=== PATIENT | male | born 1955 | race Caucasian/White ===

== ENCOUNTER 2017-02-05 05:40 | Emergency (ER) | payer BC ==
[~2017-02-05] VITALS: Ht 185.4 cm; Wt 90.2 kg
[~2017-02-05 05:40] MED LIST: OREGCAP
[2017-02-05 05:45] VITALS: TEMP 36.6; Ht 185.4 cm; Wt 90.2 kg
[2017-02-05] MEDS ORDERED: ASPIRIN 81 MG CHEW PO STA (06:02)
[2017-02-05 06:12] LABS: BASO % 0.5 %; BASO ABS # 0.04 K/uL (0-0.2); EOS ABS # 0.31 K/uL (0-0.5); HEMATOCRIT 45.6 % (42-52); HEMOGLOBIN 16.1 g/dL (14.0-18.0); IG# 0.02 K/uL (0.00-0.02); LYMPH % 21.8 %; LYMPH ABS # 1.68 K/uL (1.2-3.4); MEAN CELL VOLUME 92.3 fL (80-100); MEAN CORPUSCULAR HEMOGLOBIN 32.6 pg (25-34); MEAN CORPUSCULAR HGB CONC 35.3 g/dl (32-36); MEAN PLATELET VOLUME 10.1 fL (7.4-10.4); MONO % 7.4 %; MONO ABS # 0.57 K/uL (0.11-0.59); NEUT ABS # 5.09 K/uL (1.4-6.5); PLATELET COUNT 190 K/uL (130-400); RED CELL DISTRIBUTION WIDTH CV 12.1 % (11.5-14.5); WHITE BLOOD COUNT 7.71 K/uL (4.8-10.8)
[2017-02-05] MEDS ORDERED: NITROGLYCERIN 0.4 MG SL PER TAB CHARGE SL PRN (06:15)
[2017-02-05] MEDS ORDERED: MULT-190 PO (06:15)
[2017-02-05] MEDS ORDERED: HAWT1CAP PO (06:15)
[2017-02-05 06:29] LABS: ALBUMIN 3.7 gm/dl (3.4-5.0); ALT/SGPT 44 U/L (12-78); AST/SGOT 22 U/L (15-37); BLOOD UREA NITROGEN 17 mg/dl (7-18); CALCIUM 8.8 mg/dl (8.5-10.1); CARBON DIOXIDE 25 mmol/L (21-32); CREATININE 0.96 mg/dl (0.60-1.40); GLUCOSE 115 mg/dl (70-99); POTASSIUM 3.9 mmol/L (3.5-5.1); SODIUM 138 mmol/L (136-145)
[2017-02-05 06:34] LABS: ALKALINE PHOSPHATASE 87 U/L (45-117); CKMB 3.4 ng/ml (0.5-3.6); TOTAL PROTEIN 7.3 gm/dl (6.4-8.2)
--- NOTE | 2017-02-05 06:42 | DIAGNOSTIC IMAGING REPORT ---
CHEST ONE VIEW PORTABLE CLINICAL HISTORY: 61 years-old Male presenting with shoulder pain, right. TECHNIQUE: Portable upright AP view of the chest was obtained. COMPARISON: None. FINDINGS: Atherosclerosis of the aortic arch. Cardiac silhouette normal in size. Minimal basilar opacities. No pleural effusion or pneumothorax. Degenerative changes of the thoracic spine. Upper abdomen normal. IMPRESSION: 1. Minimal basilar atelectasis. Otherwise no acute cardiopulmonary disease. Electronically signed by: Sterling Wyatt M.D. 02/05/2017 6:41 AM Dictated Date/Time: 02/05/2017 6:40 AM
--- NOTE | 2017-02-05 07:12 | EMERGENCY ROOM VISIT NOTE ---
History Report prepared by Cris: Kem Brower Under the Supervision of: Dr. Argentina Sutton M.D. First contact with patient: 06:02 Chief Complaint: SHOULDER PAIN Stated Complaint: SHOULDER PAIN DOWN ARM IN TO NECK History of Present Illness The patient is a 61 year old male who presents to the Emergency Room with complaints of constant right shoulder pain beginning three hours ago. His pain radiates down his arm, and to his neck and left chest. He states that his pain is "subtle" and rates his discomfort as a 3/10 in severity. The patient also complains of diaphoresis. He took two 325 mg Aspirin tablets one hour ago. He denies any nausea or leg swelling. The patient had an angiogram in 2003, but has not had any cardiac intervention ever since. He notes that he drove to and from [place] yesterday. The patient has no history of blood clots. Source of History: patient Onset: Three hours ago Position: shoulder (left) Symptom Intensity: 3/10 Timing: constant Associated Symptoms: + diaphoresis, No nausea Note: The patient denies leg swelling. Review of Systems See HPI for pertinent positives & negatives. A total of 10 systems reviewed and were otherwise negative. Past Medical & Surgical Medical Problems: (1) HLD (hyperlipidemia) (2) HTN (hypertension) Family History No pertinent family history stated. Social History Smoking Status: Former Smoker Alcohol Use: occasionally Marital Status: Occupation Status: employed Current/Historical Medications Scheduled Jim Thorpe (Jim Thorpe), 150 MG PO DAILY Ocuvite Preservision (Ocuvite Preservision), 1 TAB PO BID Allergies Coded Allergies: Shrimp (Verified Allergy, Mild, SWELLING OF ORAL CAVITY, 02/05/17) Physical Exam Vital Signs Date Time Temp Pulse Resp B/P (MAP) Pulse Ox O2 Delivery O2 Flow Rate FiO2 02/05/17 07:59 55 18 144/74 93 02/05/17 06:40 55 144/82 02/05/17 05:59 54 02/05/17 05:45 36.6 64 18 161/99 93 Room Air Physical Exam Vital signs reviewed. General: Well-appearing male, in no significant distress. HEENT: No scleral icterus, PERRLA, neck supple. Atraumatic. Cardiovascular: Regular rate and rhythm, no extra sounds. Pulmonary: Clear to auscultation bilaterally, normal work of breathing. Abdomen: Soft, nontender, nondistended, positive bowel sounds. Musculoskeletal: Atraumatic, no peripheral edema. Left shoulder with full ROM and no discomfort. Neurologic: Patient awake alert and oriented x 3. Skin: Warm, dry, no rash Medical Decision & Procedures ER Provider Diagnostic Interpretation: Radiology results as stated below per my review and radiologist interpretation: CHEST ONE VIEW PORTABLE FINDINGS: Atherosclerosis of the aortic arch. Cardiac silhouette normal in size. Minimal basilar opacities. No pleural effusion or pneumothorax. Degenerative changes of the thoracic spine. Upper abdomen normal. IMPRESSION: 1. Minimal basilar atelectasis. Otherwise no acute cardiopulmonary disease. Electronically signed by: Sterling Wyatt M.D. 02/05/2017 6:41 AM Laboratory Results 02/05/17 05:55 Red Blood Count 4.94, Mean Corpuscular Volume 92.3, Mean Corpuscular Hemoglobin 32.6, Mean Corpuscular Hemoglobin Concent 35.3, Mean Platelet Volume 10.1, Neutrophils (%) (Auto) 66.0, Lymphocytes (%) (Auto) 21.8, Monocytes (%) (Auto) 7.4, Eosinophils (%) (Auto) 4.0, Basophils (%) (Auto) 0.5, Neutrophils # (Auto) 5.09, Lymphocytes # (Auto) 1.68, Monocytes # (Auto) 0.57, Eosinophils # (Auto) 0.31, Basophils # (Auto) 0.04 02/05/17 05:55 Test 02/05/17 05:55 02/05/17 07:37 White Blood Count 7.71 K/uL (4.8-10.8) Red Blood Count 4.94 M/uL (4.7-6.1) Hemoglobin 16.1 g/dL (14.0-18.0) Hematocrit 45.6 % (42-52) Mean Corpuscular Volume 92.3 fL (80-100) Mean Corpuscular Hemoglobin 32.6 pg (25-34) Mean Corpuscular Hemoglobin Concent 35.3 g/dl (32-36) Platelet Count 190 K/uL (130-400) Mean Platelet Volume 10.1 fL (7.4-10.4) Neutrophils (%) (Auto) 66.0 % Lymphocytes (%) (Auto) 21.8 % Monocytes (%) (Auto) 7.4 % Eosinophils (%) (Auto) 4.0 % Basophils (%) (Auto) 0.5 % Neutrophils # (Auto) 5.09 K/uL (1.4-6.5) Lymphocytes # (Auto) 1.68 K/uL (1.2-3.4) Monocytes # (Auto) 0.57 K/uL (0.11-0.59) Eosinophils # (Auto) 0.31 K/uL (0-0.5) Basophils # (Auto) 0.04 K/uL (0-0.2) RDW Standard Deviation 41.0 fL (36.4-46.3) RDW Coefficient of Variation 12.1 % (11.5-14.5) Immature Granulocyte % (Auto) 0.3 % Immature Granulocyte # (Auto) 0.02 K/uL (0.00-0.02) Anion Gap 7.0 mmol/L (3-11) Est Creatinine Clear Calc Drug Dose 90.1 ml/min Estimated GFR () 97.8 Estimated GFR (Non- 84.4 BUN/Creatinine Ratio 17.9 (10-20) Calcium Level 8.8 mg/dl (8.5-10.1) Total Bilirubin 0.3 mg/dl (0.2-1) Direct Bilirubin < 0.1 mg/dl (0-0.2) Aspartate Amino Transf (AST/SGOT) 22 U/L (15-37) Alanine Aminotransferase (ALT/SGPT) 44 U/L (12-78) Alkaline Phosphatase 87 U/L (45-117) Total Creatine Kinase 355 U/L (39-308) Creatine Kinase MB 3.4 ng/ml (0.5-3.6) Creatine Kinase MB Ratio 1.0 (0-3.0) Total Protein 7.3 gm/dl (6.4-8.2) Albumin 3.7 gm/dl (3.4-5.0) Bedside Troponin I < 0.030 ng/ml (0-0.045) Laboratory results per my review. ECG Indication: chest pain Rate (beats per minute): 55 Rhythm: sinus bradycardia Findings: no ectopy, other (Non-specific ST change in the inferior and lateral leads. ) Comparison ECG Date: April 23, 2008 Change: no significant change ED Course 0604: Past medical records reviewed. The patient was evaluated in room A9B. A complete history and physical examination was performed. 0602: Ordered Aspirin Chew 324 mg PO. 0615: Ordered Nitrostat Tab 0.4 mg SL. Medical Decision Differential diagnosis: Etiologies such as cardiac ischemia, aortic dissection, pulmonary embolism, pneumonia, pneumothorax, musculoskeletal, infections, pericarditis, myocarditis , esophageal rupture, gastrointestinal, as well as others were entertained. This pt was evaluated and appeared to be in no distress. EKG was obtained and although there are ST abnl, there is no change from previous. Pt took aspirin [employer]. Lab work reveals 2 sets of troponins are negative. CXR is clear. Pt's pain had completely resolved. Pt reports a normal stress test a few months ago. He was advised to f/u with his PCP this week for reevaluation and consideration of further cardiac testing. He will return to the ED for worsening of symptoms or any medical concerns. Medication Reconcilliation Current Medication List: was personally reviewed by me Blood Pressure Screening Patient's blood pressure: Elevated blood pressure Blood pressure disposition: Elevated BP felt to be situational Impression Primary Impression: Chest pain radiating to upper extremity Scribe Attestation The scribe's documentation has been prepared under my direction and personally reviewed by me in its entirety. I confirm that the note above accurately reflects all work, treatment, procedures, and medical decision making performed by me. Departure Information Dispostion Home / Self-Care Referrals Boom Lovell MD (PCP) Forms HOME CARE DOCUMENTATION FORM, IMPORTANT VISIT INFORMATION Patient Instructions My [facility] Additional Instructions Diagnosis: Chest pain with radiation to the upper extremity Aspirin 81 mg daily. Follow-up with your primary care physician this week for reevaluation. Return to the emergency department for worsening of symptoms or any medical concerns.
[2017-02-05 07:59] VITALS: BP 144/74; PULSE 55; O2SAT 93
== END 2017-02-05 08:01 | disposition home or self-care (01) ==
LOC: C.EDB 05:41 → C.EDA 08:01
DX: R07.89 Other chest pain (principal); I10 Essential (primary) hypertension; R94.31 Abnormal electrocardiogram [ECG] [EKG]; Z87.891 Personal history of nicotine dependence

== ENCOUNTER 2024-07-27 00:50 | Observation (INO) ==
[2024-07-27 01:16] LABS: iSTAT Creatinine 1.8 mg/dl (0.6-1.3); iSTAT Hemoglobin 10.5 g/dl (14.0-18.0); iSTAT Ionized Calcium 1.03 mmol/l (1.12-1.32); iSTAT Potassium 4.2 mmol/L (3.3-5.0)
[2024-07-27] MEDS: FAMOTIDINE 20MG IV PUSH 20 MG/5 ML SYR IV STA (01:16)
[2024-07-27] MEDS ORDERED: SODIUM CHLORIDE 0.9% 100 ML IV PRN (01:17)
[2024-07-27] MEDS: KCENTRA (500unit vial) 2000 units IVP IV SCH (01:25)
[2024-07-27 01:33] LABS: Bilirubin,Total 0.4 mg/dl (0.2-1.0); Calcium 8.3 mg/dl (8.6-10.3); Potassium 4.2 mmol/L (3.5-5.1)
[2024-07-27] MEDS: SODIUM CHLORIDE 0.9% 1,000 ML IV STA (01:33)
[2024-07-27 01:39] LABS: Albumin Globulin Ratio 1.4 (0.9-2); BUN Creatinine Ratio 38.7 (10-20); Creatinine Clr Calc Pharmacy 46.3 ml/min; Globulin 2.4 gm/dl (2.5-4.0); Hematocrit (blood only) 34.9 % (42.0-52.0); Hemoglobin 11.7 g/dl (14.0-18.0); Mean Corpuscular Hemoglobin 32.1 pg (25.0-34.0); Mean Corpuscular Hgb Conc 33.5 g/dL (32.0-36.0); Mean Corpuscular Volume 95.9 fL (80.0-100.0); Mean Platelet Volume 12.2 fL (9.4-12.4); Platelet Count 65 K/uL (130-400); RDW Standard Deviation 42.3 fL (36.4-46.3); Red Blood Count 3.64 M/uL (4.70-6.10); Total Protein 5.7 gm/dl (6.0-8.3); White Blood Count 4.38 K/ul (4.8-10.8)
[2024-07-27 01:40] LABS: Basophils # (auto) 0.01 K/uL (0.00-0.20); Basophils % (auto) 0.2 %; Echinocytes 1+; Immature Granulocytes # (auto) 0.01 K/uL (0.01-0.20); Immature Granulocytes % (auto) 0.2 %; Lymphocytes # (auto) 0.35 K/uL (1.20-3.40); Monocytes # (auto) 0.27 K/uL (0.11-0.59); Monocytes % (auto) 6.2 %; Neutrophils # (auto) 3.74 K/uL (1.40-6.50); Neutrophils % (auto) 85.4 %; Platelet Estimate Decreased (Normal)
--- NOTE | 2024-07-27 01:50 | Emergency Department Note ---
Impression & Plan Acute GI bleeding, Febrile illness, acute, Anticoagulated, Leukopenia, Thrombocytopenia ED Provider Note NAME: JELENA PATTON AGE: 69 SEX: Male INFORMANT: Patient and ED PROVIDER(S): Julius Frederick MD CHIEF COMPLAINT: GI bleeding PLAN: Disposition: Admitted Outpatient prescription management: none Referral: None MEDICAL DECISION MAKING: Patient presented because of GI bleeding. He was mildly hypotensive and tachycardic on examination. He was Hemoccult positive with dark stool from below. He had a benign abdominal examination. History did raise concerns for fever. Stool studies ordered. Blood cultures, lactate and procalcitonin ordered as well. Patient was given a gentle fluid bolus of 500 mL normal saline and 125 mL an hour. Hypotension did resolve. Patient had an i-STAT performed and his hemoglobin was noted to be 10.5. Record review indicates his last hemoglobin 6 months ago was over 15. Patient had a type and screen converted to type and cross for 4 units in case transfusion would be necessary. He noted his last dose of Eliquis was definitely morning but also possibly evening, several hours ago. Given this fact I did discuss his issues with the hospital pharmacist and Kcentra was ordered. Did discuss with patient the risk and benefits. Patient did have an elevated creatinine of 1.8 on i-STAT. CT imaging of abdomen pelvis was ordered without contrast. IV Pepcid and Protonix were also ordered. CT imaging of the abdomen pelvis revealed chronic findings but no evidence of acute pathology. Patient was reassessed and was doing better. No hypotension issues. Lactate was recollected and measured. It was elevated. The patient's blood pressure held stable. Considered more aggressive sepsis fluids however I did hold on large boluses secondary to the patient's active GI bleed and concerns for hemodilution or exacerbating bleeding with higher systolic pressures. Patient was found to have a leukopenia and new thrombocytopenia on laboratory testing. He had slight elevation of AST as well. He does spend quite a bit of time around animals and is outside. No known tick bites but his profile is concerning for an anaplasmosis type process. It is certainly possible this because the thrombocytopenia and his anticoagulation has exacerbated a GI bleed. Lyme testing and peripheral smear was negative. Procalcitonin is elevated. Patient was empirically given a dose of IV doxycycline. Consultation was made with Dr. Hany Phipps, [facility] hospitalist service. Case discussed and diagnostics were reviewed. Patient was evaluated in the ER and admitted for further management. He did order the patient IV Rocephin. Care/management discussed with: Pharmacist, manager activities, hospitalist Level of care consideration(s): After review of the information above and other included data, I feel the patient requires of escalation of care to admission. Triage Nursing notes: reviewed and agree them. Vital Signs: reviewed and remarkable for mild hypotension Additional History obtained from: Patient's regarding his history Chronic Medical/Social Conditions affecting care: Anticoagulation, CAD Prior/ Outside/ External records reviewed: Primary care record reviewed from June 2023. Patient status post bypass from [facility] and is anticoagulated. Differential Diagnosis: Diverticulosis, AVM, coagulopathy, colitis, inflammatory bowel disease, malignancy, Desire-Sandhu tear, esophagitis, peptic ulcer disease, variceal bleed, gastritis, epistaxis, fissure, hemorrhoids, as well as other pathologies. Diagnostics, independently interpreted by me: ECG: Twelve-lead ECG reveals a sinus rhythm with PACs and PVCs at 99 bpm. Inferior and anterolateral ST-T wave changes concerning for ischemia. When compared to 24 January 2024 there is no significant change. Cardiac Monitoring: Cardiac monitoring ordered by me: The patient was placed on continuous cardiac monitoring and observed. It revealed a sinus tachycardic rhythm at 105 bpm. Medical decision rules: none Imaging studies: CT imaging of the abdomen pelvis reveals chronic findings without any evidence of acute pathology. I refer you to the EMR for further details. Chest x-ray. Findings: A chest x-ray was performed and revealed no pneumothorax, effusion, infiltrate, pulmonary edema, free air under the diaphragm, or wide mediastinum. Impression: No acute disease. HPI: 69 year old Male arrives for evaluation of GI bleeding. This started 2 days ago with dark diarrhea and is noted to be bloody tonight.. The patient also notes the following associated symptoms, generalized weakness, fever up to 104 and decreased appetite.. The patient has taken Tylenol for relieving factors. Current pain is rated as 0/10. Patient denied any abdominal pain with this illness. Patient denies any antibiotic use recently or travel. No sick contacts. Under the right eye by his cat accidentally but notes no issues in the area of the scratch such as redness or swelling. Pt denies LOC, headache, visual changes, neck pain, chest pain, breathing difficulties, nausea, vomiting, abdominal pain, back pain, urinary symptoms, numbness, lymphadenopathy, rash, or other complaints.. PAST MEDICAL HISTORY: CAD, A-fib/flutter, anticoagulated, see below PAST SURGICAL HISTORY: See Below, triple bypass. Patient denies any valve replacement. SOCIAL HISTORY: See Below, HOME MEDICATIONS: See Below ALLERGIES: See Below VITALS: See Below PHYSICAL EXAMINATION: GENERAL: Awake, alert, uncomfortable-appearing, in no distress HENT: Normocephalic, atraumatic. Oropharynx unremarkable. EYES: Normal conjunctiva. Sclera non-icteric. NECK: Inspection normal. Non-tender. Supple. No nuchal rigidity. FROM. No masses. RESPIRATORY: Clear to auscultation. No wheezes. No rales. Normal respiratory effort. CARDIAC: Mildly tachycardic rate. Normal rhythm. No murmurs. No rubs. Extremities warm and well perfused. Pulses equal. No JVD. GI: Soft, non-distended. No tenderness to palpation. No rebound or guarding. No masses. RECTAL: Black stool Hemoccult positive MUSCULOSKELETAL: Atraumatic. Chest examination reveals no tenderness. The back is symmetrical on inspection without obvious abnormality. There is no CVA tenderness to palpation. No joint edema. LOWER EXTREMITIES: Calves are equal size bilaterally and non-tender. No edema. Chronic venous discoloration. NEURO: Normal sensorium. No sensory or motor deficits noted. SKIN: No rash or jaundice noted. PROCEDURES: none CRITICAL CARE: I have personally spent 45 minutes of critical care time in the direct management of this patient. This includes bedside care, interpretation of diagnostic studies, and testing, discussion with consultants, patient, and family members, and other required patient management activities. These minutes are in excess of all separately billable procedures. OBSERVATION NOTE: none Past Med/Surg History Problem List (Updated 07/27/24 @ 05:23 by Julius Frederick MD) Thrombocytopenia (Acute) Leukopenia (Acute) Anticoagulated (Acute) Febrile illness, acute (Acute) Acute GI bleeding (Acute) Encounter for pre-operative examination HLD (hyperlipidemia) (Chronic) "borderline" No meds HTN (hypertension) (Chronic) "borderline" No meds Medical History History of COVID-19 11/2021- fatigue/lethargy > no current issues Left foot drop "mild" Hx of colonic polyps Surgical History (Updated 02/09/24 @ 00:05 by Edyta Murry) History of coronary artery bypass graft History of cardiac cath 2003- no stents History of colonoscopy H/O local excision of skin lesion H/O umbilical hernia repair Family History Father History of coronary artery bypass graft Other No family history of adverse response to anesthesia Social History Smoking Status: Former smoker Tobacco Type: Cigarettes Second Hand Exposure: No; Do You Dip or Chew Tobacco: No; Hx Alcohol Use: No Hx Substance Use: No Preferred Language: Serbian Communication Ability: Effective Head Butler Required: No Beliefs That Will Affect Care: None Current Living Situation: Spouse 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 Other Information That Helps Us Care for You: No Feels Safe at Home: Yes Safety Concerns: Feels Safe At This Time Assistive Devices: Glasses Allergies Allergies Allergy/AdvReac Type Severity Reaction Status Date / Time shrimp Allergy Severe Anaphylaxis Verified 07/27/24 01:36 No Known Drug Allergies Allergy Unknown Verified 07/27/24 01:36 Home Meds Home Medications Medication Instructions Recorded Confirmed apixaban 5 mg tablet (Eliquis) 5 mg PO AMHS 07/27/24 07/27/24 aspirin 81 mg tablet 81 mg PO DAILY 07/27/24 07/27/24 metoprolol succinate 25 mg 12.5 mg PO QAM 07/27/24 07/27/24 tablet,extended release 24 hr Results & Data (ED) Vital Signs Vital Signs - 24 hr 07/27/24 01:13 07/27/24 01:21 07/27/24 01:25 Temperature 36.9 C Temperature Source Oral Pulse Rate 99 H 99 H Pulse Rate [Apical] Pulse Rhythm Regular Pulse Rhythm [Apical] Pulse Strength Normal Pulse Strength [Apical] Respiratory Rate 18 Respiratory Effort / Characteristics Non-Labored Respiratory Depth Normal Respiratory Pattern Regular Blood Pressure 113/67 Blood Pressure [Right Arm] Blood Pressure Mean 82 Blood Pressure Mean [Right Arm] Blood Pressure Position Sitting Blood Pressure Position [Right Arm] Pulse Oximetry 96 96 Oxygen Delivery Method Room Air Room Air Sepsis Recent Fever Within 48 Hours Yes Sepsis New/Unexplained Change in Mental Status No Sepsis Action Taken by Nursing No Action Required 07/27/24 02:32 Temperature Temperature Source Pulse Rate Pulse Rate [Apical] 97 H Pulse Rhythm Pulse Rhythm [Apical] Regular Pulse Strength Pulse Strength [Apical] Normal Respiratory Rate 18 Respiratory Effort / Characteristics Non-Labored Respiratory Depth Normal Respiratory Pattern Regular Blood Pressure Blood Pressure [Right Arm] 106/66 Blood Pressure Mean Blood Pressure Mean [Right Arm] 79 Blood Pressure Position Blood Pressure Position [Right Arm] Sitting Pulse Oximetry 97 Oxygen Delivery Method Room Air Sepsis Recent Fever Within 48 Hours Sepsis New/Unexplained Change in Mental Status Sepsis Action Taken by Nursing Laboratory Data 07/27/24 05:44 07/27/24 01:00 Lab Results 07/27/24 07/27/24 07/27/24 Range/Units 01:00 01:04 01:19 WBC 4.38 L (4.8-10.8) K/ul RBC 3.64 L (4.70-6.10) M/uL Hgb 11.7 L (14.0-18.0) g/dl POC Hgb 10.5 L (14.0-18.0) g/dl Hct 34.9 L (42.0-52.0) % POC Hct 31 L (42-52) % MCV 95.9 (80.0-100.0) fL MCH 32.1 (25.0-34.0) pg MCHC 33.5 (32.0-36.0) g/dL RDW Std Deviation 42.3 (36.4-46.3) fL RDW Coeff of Marcia 12.0 (11.5-14.5) % Plt Count 65 L (130-400) K/uL MPV 12.2 (9.4-12.4) fL Immature Gran % (Auto) 0.2 % Neut % (Auto) 85.4 % Lymph % (Auto) 8.0 % Cochran % (Auto) 6.2 % Eos % (Auto) 0.0 % Baso % (Auto) 0.2 % Neut # (Auto) 3.74 (1.40-6.50) K/uL Lymph # (Auto) 0.35 L (1.20-3.40) K/uL Cochran # (Auto) 0.27 (0.11-0.59) K/uL Eos # (Auto) 0.00 (0.00-0.50) K/uL Baso # (Auto) 0.01 (0.00-0.20) K/uL Immature Gran # (Auto) 0.01 (0.01-0.20) K/uL Platelet Estimate Decreased L (Normal) Echinocytes 1+ PT 11.9 (9.0-12.0) Seconds INR 1.1 (0.9-1.1) APTT 26 (21-31) Seconds PTT Ratio 1.0 POC Sodium 135 (135-144) mmol/L Sodium 136 (136-145) mmol/L POC Potassium 4.2 (3.3-5.0) mmol/L Potassium 4.2 (3.5-5.1) mmol/L POC Chloride 107 (101-112) mmol/L Chloride 105 (98-107) mmol/L Carbon Dioxide 17 L (21-32) mmol/L POC Total CO2 17 L (24-31) mmol/L Anion Gap 14 H (3-11) POC Anion Gap 16.0 (16-25) mmol/L POC BUN 67 H (7-18) mg/dl BUN 63 H (6-23) mg/dl Creatinine 1.63 H (0.6-1.4) mg/dl POC Creatinine 1.8 H (0.6-1.3) mg/dl Est Cr Clr Drug Dosing 46.3 ml/min eGFR 45.05 BUN/Creatinine Ratio 38.7 H (10-20) Glucose 174 H (70-99(Fasting)) mg/dl POC Glucose (other) 165 H (70-99) mg/dl Lactate (0.4-2.0) mmol/L Calcium 8.3 L (8.6-10.3) mg/dl POC Ioniz Calcium Nam 1.03 L (1.12-1.32) mmol/l Magnesium 2.3 (1.7-2.4) mg/dl Total Bilirubin 0.4 (0.2-1.0) mg/dl AST 45 H (13-39) U/L ALT 29 (7-52) U/L Alkaline Phosphatase 55 (34-104) U/L Troponin I High Sens 56.9 H* (0-20) pg/ml Total Protein 5.7 L (6.0-8.3) gm/dl Albumin 3.3 L (3.4-5.0) gm/dl Globulin 2.4 L (2.5-4.0) gm/dl Albumin/Globulin Ratio 1.4 (0.9-2) Procalcitonin 2.65 H (0-0.5) ng/ml POC Stool Occult Blood Positive A (Negative) Ethyl Alcohol mg/dL (<10.0) mg/dl Anaplasma Smear See Comment Babesia Smear See Comment Lyme Disease Screen Negative (Negative) Blood Type Blood Type Recheck Antibody Screen Crossmatch 07/27/24 07/27/24 07/27/24 Range/Units 01:34 01:35 02:43 WBC (4.8-10.8) K/ul RBC (4.70-6.10) M/uL Hgb (14.0-18.0) g/dl POC Hgb (14.0-18.0) g/dl Hct (42.0-52.0) % POC Hct (42-52) % MCV (80.0-100.0) fL MCH (25.0-34.0) pg MCHC (32.0-36.0) g/dL RDW Std Deviation (36.4-46.3) fL RDW Coeff of Marcia (11.5-14.5) % Plt Count (130-400) K/uL MPV (9.4-12.4) fL Immature Gran % (Auto) % Neut % (Auto) % Lymph % (Auto) % Cochran % (Auto) % Eos % (Auto) % Baso % (Auto) % Neut # (Auto) (1.40-6.50) K/uL Lymph # (Auto) (1.20-3.40) K/uL Cochran # (Auto) (0.11-0.59) K/uL Eos # (Auto) (0.00-0.50) K/uL Baso # (Auto) (0.00-0.20) K/uL Immature Gran # (Auto) (0.01-0.20) K/uL Platelet Estimate (Normal) Echinocytes PT (9.0-12.0) Seconds INR (0.9-1.1) APTT (21-31) Seconds PTT Ratio POC Sodium (135-144) mmol/L Sodium (136-145) mmol/L POC Potassium (3.3-5.0) mmol/L Potassium (3.5-5.1) mmol/L POC Chloride (101-112) mmol/L Chloride (98-107) mmol/L Carbon Dioxide (21-32) mmol/L POC Total CO2 (24-31) mmol/L Anion Gap (3-11) POC Anion Gap (16-25) mmol/L POC BUN (7-18) mg/dl BUN (6-23) mg/dl Creatinine (0.6-1.4) mg/dl POC Creatinine (0.6-1.3) mg/dl Est Cr Clr Drug Dosing ml/min eGFR BUN/Creatinine Ratio (10-20) Glucose (70-99(Fasting)) mg/dl POC Glucose (other) (70-99) mg/dl Lactate 2.5 H* (0.4-2.0) mmol/L Calcium (8.6-10.3) mg/dl POC Ioniz Calcium Nam (1.12-1.32) mmol/l Magnesium (1.7-2.4) mg/dl Total Bilirubin (0.2-1.0) mg/dl AST (13-39) U/L ALT (7-52) U/L Alkaline Phosphatase (34-104) U/L Troponin I High Sens (0-20) pg/ml Total Protein (6.0-8.3) gm/dl Albumin (3.4-5.0) gm/dl Globulin (2.5-4.0) gm/dl Albumin/Globulin Ratio (0.9-2) Procalcitonin (0-0.5) ng/ml POC Stool Occult Blood (Negative) Ethyl Alcohol mg/dL (<10.0) mg/dl Anaplasma Smear Babesia Smear Lyme Disease Screen (Negative) Blood Type B Positive Blood Type Recheck B Positive Antibody Screen NEGATIVE Crossmatch See Detail 07/27/24 Range/Units 02:47 WBC (4.8-10.8) K/ul RBC (4.70-6.10) M/uL Hgb (14.0-18.0) g/dl POC Hgb (14.0-18.0) g/dl Hct (42.0-52.0) % POC Hct (42-52) % MCV (80.0-100.0) fL MCH (25.0-34.0) pg MCHC (32.0-36.0) g/dL RDW Std Deviation (36.4-46.3) fL RDW Coeff of Marcia (11.5-14.5) % Plt Count (130-400) K/uL MPV (9.4-12.4) fL Immature Gran % (Auto) % Neut % (Auto) % Lymph % (Auto) % Cochran % (Auto) % Eos % (Auto) % Baso % (Auto) % Neut # (Auto) (1.40-6.50) K/uL Lymph # (Auto) (1.20-3.40) K/uL Cochran # (Auto) (0.11-0.59) K/uL Eos # (Auto) (0.00-0.50) K/uL Baso # (Auto) (0.00-0.20) K/uL Immature Gran # (Auto) (0.01-0.20) K/uL Platelet Estimate (Normal) Echinocytes PT (9.0-12.0) Seconds INR (0.9-1.1) APTT (21-31) Seconds PTT Ratio POC Sodium (135-144) mmol/L Sodium (136-145) mmol/L POC Potassium (3.3-5.0) mmol/L Potassium (3.5-5.1) mmol/L POC Chloride (101-112) mmol/L Chloride (98-107) mmol/L Carbon Dioxide (21-32) mmol/L POC Total CO2 (24-31) mmol/L Anion Gap (3-11) POC Anion Gap (16-25) mmol/L POC BUN (7-18) mg/dl BUN (6-23) mg/dl Creatinine (0.6-1.4) mg/dl POC Creatinine (0.6-1.3) mg/dl Est Cr Clr Drug Dosing ml/min eGFR BUN/Creatinine Ratio (10-20) Glucose (70-99(Fasting)) mg/dl POC Glucose (other) (70-99) mg/dl Lactate (0.4-2.0) mmol/L Calcium (8.6-10.3) mg/dl POC Ioniz Calcium Nam (1.12-1.32) mmol/l Magnesium (1.7-2.4) mg/dl Total Bilirubin (0.2-1.0) mg/dl AST (13-39) U/L ALT (7-52) U/L Alkaline Phosphatase (34-104) U/L Troponin I High Sens 77.7 H* D (0-20) pg/ml Total Protein (6.0-8.3) gm/dl Albumin (3.4-5.0) gm/dl Globulin (2.5-4.0) gm/dl Albumin/Globulin Ratio (0.9-2) Procalcitonin (0-0.5) ng/ml POC Stool Occult Blood (Negative) Ethyl Alcohol mg/dL < 10.0 (<10.0) mg/dl Anaplasma Smear Babesia Smear Lyme Disease Screen (Negative) Blood Type Blood Type Recheck Antibody Screen Crossmatch Administered Medications Pantoprazole Sodium 40 mg/ (Dextrose) 100 mls @ 20 mls/hr IV Q5H ALEJANDRA Stop: 08/26/24 01:29 Last Admin: 07/27/24 06:27 Dose: 8 mg/hr, 20 mls/hr Documented By: Infusion: 07/27/24 06:27 Dose: Infused Documented By: Admin: 07/27/24 02:00 Dose: 8 mg/hr, 20 mls/hr Documented By: NICKI Lactated Ringer's (Lr) 1,000 mls @ 100 mls/hr IV .Q10H ONE Stop: 07/27/24 13:34 Last Infusion: 07/27/24 06:26 Dose: 100 mls/hr Documented By: Admin: 07/27/24 04:53 Dose: 200 mls/hr Documented By: JALEN Discontinued Medications Gabapentin (Gabapentin 600 Mg Tab) 1,200 mg PO NOW ONE Stop: 07/27/24 03:46 Last Admin: 07/27/24 04:11 Dose: Not Given Documented By: NICKI Sodium Chloride (Nss) 1,000 mls @ 125 mls/hr IV .Q8H STA Stop: 07/27/24 08:51 Last Infusion: 07/27/24 04:59 Dose: Infused Documented By: Admin: 07/27/24 01:33 Dose: 125 mls/hr Documented By: WOLF Famotidine (Pepcid 20mg Iv Push) 20 mg in 5 mls @ 2.5 mls/min IV NOW STA Stop: 07/27/24 01:13 Last Admin: 07/27/24 01:16 Dose: 2.5 mls/min Documented By: WOLF Pantoprazole Sodium 80 mg/ (Dextrose) 120 mls @ 480 mls/hr IV NOW ONE Stop: 07/27/24 01:26 Last Infusion: 07/27/24 02:17 Dose: Infused Documented By: Admin: 07/27/24 01:58 Dose: 480 mls/hr Documented By: NICKI Prothrombin Complex Concent ( (Human) 2,000 units/ Syringe) 80 mls @ 10 mls/min IV 0115 ALEJANDRA; Protocol Stop: 07/27/24 02:00 Last Admin: 07/27/24 01:25 Dose: 10 mls/min Documented By: WOLF Sodium Chloride (Nss) 500 mls @ 999 mls/hr IV .Q31M ONE Stop: 07/27/24 02:01 Last Infusion: 07/27/24 03:00 Dose: Infused Documented By: Admin: 07/27/24 02:19 Dose: 999 mls/hr Documented By: NICKI Doxycycline Hyclate 100 mg/ (Dextrose) 100 mls @ 50 mls/hr IV NOW STA Stop: 07/27/24 04:21 Last Infusion: 07/27/24 05:00 Dose: Infused Documented By: Admin: 07/27/24 02:46 Dose: 50 mls/hr Documented By: OLGA Thiamine HCl 100 mg/ Syringe 10 mls @ 2 mls/min IV NOW STA Stop: 07/27/24 03:44 Last Admin: 07/27/24 04:11 Dose: Not Given Documented By: NICKI Ceftriaxone Sodium (Rocephin) 2,000 mg in 50 mls @ 100 mls/hr IV NOW STA Stop: 07/27/24 04:39 Last Infusion: 07/27/24 05:47 Dose: Infused Documented By: Admin: 07/27/24 05:15 Dose: 100 mls/hr Documented By: JALEN Pantoprazole Sodium (Pantoprazole Bolus/Drip) 1 each IV NOW STA Stop: 07/27/24 01:13 Last Admin: 07/27/24 02:00 Dose: 1 each Documented By: [facility] [facility] Data Radiologist's Impression: Abdomen/Pelvis CT 07/27/24 01:32 EXAM: CT abd pelvis wo con CLINICAL HISTORY: gi bleed, fever, elevated cr TECHNIQUE: Contiguous axial images were obtained from the level of the diaphragm to the pubic symphysis without intravenous or oral contrast. Coronal and sagittal reconstructions were likewise performed and indicated to increase the sensitivity for detecting clinically relevant pathology. CT scan was performed according to ALARA (as low as reasonable achievable). COMPARISON: None. FINDINGS: The visualized lung bases are clear. Evaluation of the abdominal and pelvic visceral organs is limited without intravenous contrast. Hepatomegaly with diffuse hepatic steatosis. The unenhanced spleen, pancreas, are grossly unremarkable. Suspicious small rounded hypodense nodules are noted involving body of both adrenal glands, likely adenomas. The gallbladder is present. The kidneys are normal in size and attenuation without obvious calcification. There is no hydronephrosis . Mild bilateral perinephric stranding. The ureters are normal in caliber. No adenopathy or fluid collections are seen. No evidence of focal or diffuse bowel wall thickening or evidence of bowel obstruction is seen. The appendix is visualized in the right lower quadrant and appears within normal limits. The aorta is normal in caliber. The urinary bladder is normal in contour. Mild prostatomegaly is detected with few intraprostatic calcifications. No aggressive appearing osseous lesions are identified. Bilateral fat containing inguinal hernia - larger on right side. Multiple small uncomplicated sigmoid colonic diverticulosis Diffuse atherosclerotic calcification is noted involving aorta iliac arteries. Sclerotic lesion is noted involving the left iliac bone, indeterminate etiology. Possibility of bone island IMPRESSION: 1. Hepatomegaly with diffuse hepatic steatosis. 2. Mild bilateral perinephric fat stranding. Suggested renal function test correlation. 3. Suspicious small rounded hypodense nodules are noted involving body of both adrenal glands, likely adenomas. 4. Mild prostatomegaly is detected with few intraprostatic calcifications. 5. Bilateral fat containing inguinal hernia - larger on right side. 6. Multiple small uncomplicated sigmoid colonic diverticulosis. 7. Sclerotic lesion is noted involving the left iliac bone, indeterminate etiology. Possibility of bone island Electronically signed by Garcia Soto 07-27-2024 03:19 AM Chest X-Ray 07/27/24 02:40 EXAM: XR chest 1V portable CLINICAL HISTORY: renal failure. TECHNIQUE: An X-ray image of the chest is obtained in AP projection. COMPARISON: 01/24/2024 FINDINGS: Pulmonary Parenchyma: No evidence of consolidation, collapse, or focal opacities. No pulmonary nodules are identified. No evidence of pleural effusion or pleural thickening. Heart and Mediastinum: Heart size and shape are normal. No mediastinal widening or masses. No hilar or mediastinal lymphadenopathy. Bony Thorax: Bony thorax appears intact without fractures or deformities. Sternotomy wires are noted, Soft Tissues: Soft tissues overlying the chest wall are unremarkable. IMPRESSION: 1. No evidence of consolidation, collapse, or focal opacities. 2. No evidence of pleural effusion or pneumothorax. 3. No interval changes. Electronically signed by Fei Caceres 07-27-2024 03:22 AM Discharge Plan Visit Data Chief Complaint: GI Assessment Stated Complaint: Diarrhea, Rectal Bleed ED Provider: Julius Frederick Discharge Problem: Acute GI bleeding, Febrile illness, acute, Anticoagulated, Leukopenia, Thrombocytopenia Patient Disposition: Admitted As Inpatient Condition: Serious Discharge Instructions Interventions: ED Discharge Assessment Last Done: 07/27/24 04:37
[2024-07-27] MEDS: PANTOprazole 80 MG in DEXTROSE 5% 100 ML IV ONE (01:58)
[2024-07-27] MEDS: PANTOprazole 40 MG in DEXTROSE 5% MINI-B 100 ML IV SCH (02:00)
[2024-07-27] MEDS: PANTOPRAZOLE BOLUS/DRIP IV STA (02:00)
[2024-07-27 02:07] LABS: Troponin I High Sensitivity 56.9 pg/ml (0-20)
[2024-07-27 02:08] LABS: INR 1.1 (0.9-1.1); Partial Thromboplastin Time 26 Seconds (21-31); Prothrombin Time 11.9 Seconds (9.0-12.0)
[2024-07-27] MEDS: SODIUM CHLORIDE 0.9% 500 ML IV ONE (02:19)
[2024-07-27 02:30] LABS: Procalcitonin 2.65 ng/ml (0-0.5)
[2024-07-27 02:31] LABS: Magnesium 2.3 mg/dl (1.7-2.4)
[2024-07-27] MEDS: DOXYCYCLINE HYCLATE 100 MG in DEXTROSE 5% MINI-B 100 ML IV STA (02:46)
--- NOTE | 2024-07-27 02:49 | History & Physical Report ---
Date of Service July 27, 2024 Assessment & Plan (1) Acute GI bleeding: Plan: Assessment and plan below following discussion of case with ED provider and reviewing patient history/pertinent normal/abnormal diagnostic test results. GI bleed UGIB/LGIB combo Patient predisposed by antiplatelet/anticoagulant Rx, hx CAD status post CABG/PVD/atrial fibrillation/flutter on Eliquis At risk alcohol intake and fatty liver disease are contributory risk factors. Rule out infectious causes for bloody diarrhea. Severe sepsis SIRS plus lactic acidosis plus ARF Possible sources: Possible tickborne infection given new onset pancytopenia and farm animal exposure. Rule out complicated UTI given prostate enlargement and perinephric stranding on imaging Diarrheal illness Troponin elevation secondary to illness hypertension, BP on the lower side Possible alcohol withdrawal, patient tremulous on exam which he attributes to diarrhea and poor p.o. intake, admits to 1-2 drinks per night, last EtOH intake was 4 days ago. hx colonic polyps/diverticulosis as per records prediabetes, hemoglobin A1c of 5.7 from 2023 past tobacco abuse Admit to med/tele Appropriate to hold aspirin and Eliquis for now given GI bleed with some evidence of hemodynamic instability IV PPI GI consult re: GI bleed N.p.o. in anticipation of endoscopy Follow H&H, transfuse PRBC to maintain hemoglobin of at least 8 given vascular disease history CS Check UA Monitor creatinine and lactic acid acid response to IVF Hold antihypertensive medication for now given borderline BP. ceftriaxone 1 dose for now for possible UTI until UA resulted Tickborne panel, doxycycline for possible tickborne infection until panel resulted. Stool cultures, stool C. difficile Follow troponin, TTE for progression TORI S, DT precautions Update hemoglobin A1c DVT prophylaxis. SCDs re: GI bleed Full code Patient requesting updates providers. Ms. bAril Giron, contact numbers [phone]. Text document was generated using [employer] voice recognition software. It may contain grammatical or spelling errors. Kindly contact undersigned for clarification of any documentation item in question. History of Present Illness Chief Complaint: GI bleed, diarrhea Primary Care Provider: Bomo Lovell MD History obtained from patient, family, and records. Medical history significant for CAD status post CABG, atrial fibrillation/flutter on Eliquis, PVD, hypertension, hyperlipidemia, JORGE A (not on CPAP), fatty liver as per records, colonic polyps, diverticulosis as per records, prediabetes, mood disorder, daily alcohol intake, past tobacco abuse. Last confinement 2008 for arrhythmia. 3 days history of diarrhea symptoms described as dark stools associated with nausea symptoms. No emesis, abdominal pain. Some chills at home. Patient unaware of sick contacts. No recent antibiotic Rx or out-of-town travel. No OTC NSAID intake. Bloody bowel movements later noted at home yesterday. Patient feeling lightheaded and weak. Denies headache. No cough symptoms. Not sure about recent tick bites although patient and keep doxycycline stores as needed. SBP noted to be 80s at home upon EMS arrival. Patient brought to ER for evaluation. IV Pepcid, Protonix infusion, famotidine, Kcentra, doxycycline administered at the ER. Medical History as above 2020 colonoscopy showed sigmoid diverticulosis and polyps. 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 Allergies Allergy/AdvReac Type Severity Reaction Status Date / Time shrimp Allergy Severe Anaphylaxis Verified 07/27/24 01:36 No Known Drug Allergies Allergy Unknown Verified 07/27/24 01:36 Home Medications Medication Instructions Recorded Confirmed Type apixaban 5 mg tablet (Eliquis) 5 mg PO AMHS 07/27/24 07/27/24 History aspirin 81 mg tablet 81 mg PO DAILY 07/27/24 07/27/24 History metoprolol succinate 25 mg 12.5 mg PO QAM 07/27/24 07/27/24 History tablet,extended release 24 hr Past Med/Surg History Problem List (Updated 07/27/24 @ 05:23 by Julius Frederick MD) Thrombocytopenia (Acute) Leukopenia (Acute) Anticoagulated (Acute) Febrile illness, acute (Acute) Acute GI bleeding (Acute) Encounter for pre-operative examination HLD (hyperlipidemia) (Chronic) "borderline" No meds HTN (hypertension) (Chronic) "borderline" No meds Medical History History of COVID-19 11/2021- fatigue/lethargy > no current issues Left foot drop "mild" Hx of colonic polyps Surgical History (Updated 02/09/24 @ 00:05 by Edyta Murry) History of coronary artery bypass graft History of cardiac cath 2004- no stents History of colonoscopy H/O local excision of skin lesion H/O umbilical hernia repair Family History Father History of coronary artery bypass graft Other No family history of adverse response to anesthesia Social History Smoking Status: Former smoker Tobacco Type: Cigarettes Second Hand Exposure: No; Do You Dip or Chew Tobacco: No; Hx Alcohol Use: No Hx Substance Use: No Preferred Language: Bulgarian Communication Ability: Effective Audio Visual Coordinator Required: No Beliefs That Will Affect Care: None Current Living Situation: Spouse 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 Feels Safe at Home: Yes Assistive Devices: Glasses Review of Systems Review of Systems: As per HPI, all other systems reviewed and negative Physical Exam Physical Exam: GENERAL: Comfortable, pleasant, slightly anxious, tremulous, no respiratory distress SKIN: Normal color, warm HEENT: Partial alopecia, pink palpebral conjunctivae, no ptosis, dry buccal mucosa NECK : Supple, no tenderness CHEST : CTA, no tenderness HEART : RRR, no obvious murmurs ABDOMEN: Some distention, nontender EXTREMITIES : No LE swelling/tenderness, palpable pulses, no other conspicuous deformities noted NEUROLOGIC : Coherent, no facial asymmetry, tremulous, gait and stance not assessed. Results & Data Results & Data Vital Signs (Past 12 Hours) Vital Signs Temp Pulse Resp BP Pulse Ox O2 Del Method 07/27/24 01:25 99 H 07/27/24 01:21 96 Room Air 07/27/24 01:13 36.9 C 99 H 18 113/67 96 Room Air Laboratory Results Laboratory Results WBC 4.38 K/ul (4.8-10.8) L 07/27/24 01:00 RBC 3.64 M/uL (4.70-6.10) L 07/27/24 01:00 Hgb 11.7 g/dl (14.0-18.0) L 07/27/24 01:00 POC Hgb 10.5 g/dl (14.0-18.0) L 07/27/24 01:04 Hct 34.9 % (42.0-52.0) L 07/27/24 01:00 POC Hct 31 % (42-52) L 07/27/24 01:04 MCV 95.9 fL (80.0-100.0) 07/27/24 01:00 MCH 32.1 pg (25.0-34.0) 07/27/24 01:00 MCHC 33.5 g/dL (32.0-36.0) 07/27/24 01:00 RDW Std Deviation 42.3 fL (36.4-46.3) 07/27/24 01:00 RDW Coeff of Marcia 12.0 % (11.5-14.5) 07/27/24 01:00 Plt Count 65 K/uL (130-400) L 07/27/24 01:00 MPV 12.2 fL (9.4-12.4) 07/27/24 01:00 Immature Gran % (Auto) 0.2 % 07/27/24 01:00 Neut % (Auto) 85.4 % 07/27/24 01:00 Lymph % (Auto) 8.0 % 07/27/24 01:00 [place] % (Auto) 6.2 % 07/27/24 01:00 Eos % (Auto) 0.0 % 07/27/24 01:00 Baso % (Auto) 0.2 % 07/27/24 01:00 Neut # (Auto) 3.74 K/uL (1.40-6.50) 07/27/24 01:00 Lymph # (Auto) 0.35 K/uL (1.20-3.40) L 07/27/24 01:00 [place] # (Auto) 0.27 K/uL (0.11-0.59) 07/27/24 01:00 Eos # (Auto) 0.00 K/uL (0.00-0.50) 07/27/24 01:00 Baso # (Auto) 0.01 K/uL (0.00-0.20) 07/27/24 01:00 Immature Gran # (Auto) 0.01 K/uL (0.01-0.20) 07/27/24 01:00 Platelet Estimate Decreased (Normal) L 07/27/24 01:00 Echinocytes 1+ 07/27/24 01:00 PT 11.9 Seconds (9.0-12.0) 07/27/24 01:00 INR 1.1 (0.9-1.1) 07/27/24 01:00 APTT 26 Seconds (21-31) 07/27/24 01:00 PTT Ratio 1.0 07/27/24 01:00 POC Sodium 135 mmol/L (135-144) 07/27/24 01:04 Sodium 136 mmol/L (136-145) 07/27/24 01:00 POC Potassium 4.2 mmol/L (3.3-5.0) 07/27/24 01:04 Potassium 4.2 mmol/L (3.5-5.1) 07/27/24 01:00 POC Chloride 107 mmol/L (101-112) 07/27/24 01:04 Chloride 105 mmol/L (98-107) 07/27/24 01:00 Carbon Dioxide 17 mmol/L (21-32) L 07/27/24 01:00 POC Total CO2 17 mmol/L (24-31) L 07/27/24 01:04 Anion Gap 14 (3-11) H 07/27/24 01:00 POC Anion Gap 16.0 mmol/L (16-25) 07/27/24 01:04 POC BUN 67 mg/dl (7-18) H 07/27/24 01:04 BUN 63 mg/dl (6-23) H 07/27/24 01:00 Creatinine 1.63 mg/dl (0.6-1.4) H 07/27/24 01:00 POC Creatinine 1.8 mg/dl (0.6-1.3) H 07/27/24 01:04 Est Cr Clr Drug Dosing 46.3 ml/min 07/27/24 01:00 eGFR 45.05 07/27/24 01:00 BUN/Creatinine Ratio 38.7 (10-20) H 07/27/24 01:00 Glucose 174 mg/dl (70-99(Fasting)) H 07/27/24 01:00 POC Glucose (other) 165 mg/dl (70-99) H 07/27/24 01:04 Calcium 8.3 mg/dl (8.6-10.3) L 07/27/24 01:00 POC Ioniz Calcium Nam 1.03 mmol/l (1.12-1.32) L 07/27/24 01:04 Magnesium 2.3 mg/dl (1.7-2.4) 07/27/24 01:00 Total Bilirubin 0.4 mg/dl (0.2-1.0) 07/27/24 01:00 AST 45 U/L (13-39) H 07/27/24 01:00 ALT 29 U/L (7-52) 07/27/24 01:00 Alkaline Phosphatase 55 U/L (34-104) 07/27/24 01:00 Troponin I High Sens 56.9 pg/ml (0-20) H* 07/27/24 01:00 Total Protein 5.7 gm/dl (6.0-8.3) L 07/27/24 01:00 Albumin 3.3 gm/dl (3.4-5.0) L 07/27/24 01:00 Globulin 2.4 gm/dl (2.5-4.0) L 07/27/24 01:00 Albumin/Globulin Ratio 1.4 (0.9-2) 07/27/24 01:00 Procalcitonin 2.65 ng/ml (0-0.5) H 07/27/24 01:00 POC Stool Occult Blood Positive (Negative) A 07/27/24 01:19 Anaplasma Smear See Comment 07/27/24 01:00 Babesia Smear See Comment 07/27/24 01:00 Crossmatch See Detail 07/27/24 01:34 CT abdomen pelvis: 1. Hepatomegaly with diffuse hepatic steatosis. 2. Mild bilateral perinephric fat stranding. Suggested renal function test correlation. 3. Suspicious small rounded hypodense nodules are noted involving body of both adrenal glands, likely adenomas. 4. Mild prostatomegaly is detected with few intraprostatic calcifications. 5. Bilateral fat containing inguinal hernia - larger on right side. 6. Multiple small uncomplicated sigmoid colonic diverticulosis. 7. Sclerotic lesion is noted involving the left iliac bone, indeterminate etiology. Possibility of bone island Diagnostic Findings Chest x-ray as per my interpretation no congestion EKG as per my interpretation : Rate 100, NSR, normal axis, LVH, incomplete RBBB, T wave inversion, lateral leads
[2024-07-27 02:55] LABS: Lyme Screen Rflx Confirmation Negative (Negative)
--- NOTE | 2024-07-27 03:19 | CT Scan Report ---
EXAM: CT abd pelvis wo con CLINICAL HISTORY: gi bleed, fever, elevated cr TECHNIQUE: Contiguous axial images were obtained from the level of the diaphragm to the pubic symphysis without intravenous or oral contrast. Coronal and sagittal reconstructions were likewise performed and indicated to increase the sensitivity for detecting clinically relevant pathology. CT scan was performed according to ALARA (as low as reasonable achievable). COMPARISON: None. FINDINGS: The visualized lung bases are clear. Evaluation of the abdominal and pelvic visceral organs is limited without intravenous contrast. Hepatomegaly with diffuse hepatic steatosis. The unenhanced spleen, pancreas, are grossly unremarkable. Suspicious small rounded hypodense nodules are noted involving body of both adrenal glands, likely adenomas. The gallbladder is present. The kidneys are normal in size and attenuation without obvious calcification. There is no hydronephrosis . Mild bilateral perinephric stranding. The ureters are normal in caliber. No adenopathy or fluid collections are seen. No evidence of focal or diffuse bowel wall thickening or evidence of bowel obstruction is seen. The appendix is visualized in the right lower quadrant and appears within normal limits. The aorta is normal in caliber. The urinary bladder is normal in contour. Mild prostatomegaly is detected with few intraprostatic calcifications. No aggressive appearing osseous lesions are identified. Bilateral fat containing inguinal hernia - larger on right side. Multiple small uncomplicated sigmoid colonic diverticulosis Diffuse atherosclerotic calcification is noted involving aorta iliac arteries. Sclerotic lesion is noted involving the left iliac bone, indeterminate etiology. Possibility of bone island IMPRESSION: 1. Hepatomegaly with diffuse hepatic steatosis. 2. Mild bilateral perinephric fat stranding. Suggested renal function test correlation. 3. Suspicious small rounded hypodense nodules are noted involving body of both adrenal glands, likely adenomas. 4. Mild prostatomegaly is detected with few intraprostatic calcifications. 5. Bilateral fat containing inguinal hernia - larger on right side. 6. Multiple small uncomplicated sigmoid colonic diverticulosis. 7. Sclerotic lesion is noted involving the left iliac bone, indeterminate etiology. Possibility of bone island Electronically signed by Garcia Soto 07-27-2024 03:19 AM
--- NOTE | 2024-07-27 03:22 | XRay Report ---
EXAM: XR chest 1V portable CLINICAL HISTORY: renal failure. TECHNIQUE: An X-ray image of the chest is obtained in AP projection. COMPARISON: 01/24/2024 FINDINGS: Pulmonary Parenchyma: No evidence of consolidation, collapse, or focal opacities. No pulmonary nodules are identified. No evidence of pleural effusion or pleural thickening. Heart and Mediastinum: Heart size and shape are normal. No mediastinal widening or masses. No hilar or mediastinal lymphadenopathy. Bony Thorax: Bony thorax appears intact without fractures or deformities. Sternotomy wires are noted, Soft Tissues: Soft tissues overlying the chest wall are unremarkable. IMPRESSION: 1. No evidence of consolidation, collapse, or focal opacities. 2. No evidence of pleural effusion or pneumothorax. 3. No interval changes. Electronically signed by Fei Caceres 07-27-2024 03:22 AM
[2024-07-27] MEDS ORDERED: GABAPENTIN 1200MG ALCOHOL WITHDRAWAL LOAD PO STA (03:28)
[2024-07-27] MEDS ORDERED: Ativan IV Alcohol Withdrawal--Active Protocol IV PRN (03:28)
[2024-07-27] MEDS ORDERED: LORazepam 2 MG/1 ML VIAL IV PRN ×3 (03:28)
[2024-07-27] MEDS ORDERED: oxyCODONE HCL IR 5 MG TAB (IMMEDIATE RELEASE) PO PRN (03:32)
[2024-07-27] MEDS ORDERED: ACETAMINOPHEN 500 MG TAB PO PRN (03:32)
[2024-07-27] MEDS ORDERED: PROMETHAZINE 6.25 MG/50.25 ML BAG IV PRN (03:32)
[2024-07-27] MEDS: THIAMINE HCL 100 MG in SYRINGE 9 ML IV STA (04:11)
[2024-07-27] MEDS: GABAPENTIN 600 MG TAB PO ONE (04:11)
[2024-07-27] MEDS: LACTATED RINGER'S 1,000 ML IV ONE (04:53)
[2024-07-27] MEDS: cefTRIAXone SODIUM 2,000 MG/50 ML BAG IV STA (05:15)
[2024-07-27 06:12] LABS: Base Excess VBG -3.5 mEq/L; HCO3 VBG 22 mmol/L; Oxygen Saturation VBG < 60.0 %; PCO2 VBG 41 mmHg (38-50); PO2 VBG 20 mmHg; pH VBG 7.34 (7.36-7.41)
[2024-07-27 06:13] LABS: Hematocrit (blood only) 31.8 % (42.0-52.0)
[2024-07-27 07:39] LABS: Estimated Average Glucose 120 mg/dl; Hemoglobin A1C 5.8 % (4.5-5.6)
[2024-07-27] MEDS: GABAPENTIN 600 MG TAB PO SCH (08:12)
[2024-07-27] MEDS: FOLIC ACID 1 MG TAB PO SCH (08:12)
[2024-07-27] MEDS: MULTIVITAMIN TAB PO SCH (08:12)
[2024-07-27 08:35] LABS: Appearance Urine Cloudy (Clear); Bacteria Urine Automated None Seen (None Seen); Bilirubin Urine Negative (Negative); Blood Urine Negative (Negative); Color Urine Yellow; Epithelial Cell Urine Auto 0-2 /hpf (0-2); Glucose Urine UA Negative (Negative); Ketones Urine Negative (Negative); Leukocyte Esterase Urine Negative (Negative); Nitrite Urine Negative (Negative); Protein Urine 1+ (Negative); Specific Gravity Urine 1.029 (1.000-1.030); Urobilinogen Urine Negative (Negative); WBC Urine Automated 0-5 /hpf (0-5); pH Urine 5.5 (4.5-7.5)
[2024-07-27] MEDS ORDERED: METOPROLOL SUCC 25MG EXT REL TAB PO SCH (09:00)
--- NOTE | 2024-07-27 10:00 | Gastrointestinal Consultation ---
Date of Consultation July 27, 2024 Assessment & Plan (1) Dark stools: 69 year old male with history of hyperlipidemia, JORGE A, HTN, fatty liver, atrial flutter, CAD s/p CABG x 3 (FENG-LAD, ALPESH-Ramus, SVG-PDA) 2023 anticoagulated on ASA/Eliquis admitted w/ episodes of black/dark stools onset Tuesday w/ rep orts of mixed BRBPR prior to arrival, anemia w/ HGB 11 from baseline 15.7. He has thrombocytopenia w/ PLTs 65, imaging w/ hepatomegaly w/ diffuse hepatic steatosis 1. Concern for UGIB, anemia - NPO - Hold ASA, Eliquis - Received KCentra in ED - Stop NSAIDs - Trend H&H - Monitor and document GI output - Transfuse PRN per primary service - ETOH cessation recommended - ETOH withdrawal protocol - Continue IV PPI drip - Start Octreotide bolus/drip in review of imaging, thrombocytopenia, ongoing ETOH use - Will need evaluation with EGD to start - Attending requesting cardiac clearance - Troponin 56.9 --> 77.7 --> 77.5 - Abnormal EKG - Pending EGD, may consider colonoscopy this admission vs outpatient evaluation 2. Intermittent Fevers - Follow infectious workup We appreciate assistance in the management of any serological abnormality and corrections to include: hemoglobin >7, INR <2, platelets >50,000, potassium levels >3.5 but <5.3, and sodium levels within 5 points of the reference range prior to endoscopic evaluation. Thank you for allowing us to participate in the care of this patient. Please call with any acute changes, questions or concerns. Please see addendum below with additional recommendation from my supervising physician. I spent a total of 60 minutes on the date of service in review of patient's record, and previously obtained information in person and appropriate medical visit, discussion and education of plan, with patient and/or caregiver, placing orders for tests/referral/procedures as medically necessary and documentation of pertinent clinical information in patient's medical records for their visit today. Supervising Physician Co-Signing Physician Notes Gastrointestinal bleeding. Dark stool. Differential occludes peptic ulcer disease this gentleman with a history of alcohol and low platelets and portal hypertension and/or varices on the differential. Patient had Eliquis about 48 hours ago. EGD today for evaluation of source of bleeding potential endoscopic intervention. Potential risks of this discussed informed consent obtained History of Present Illness Reason for Consultation: UGIB Requesting Physician: Humble Kothari MD Attending Physician: Humble Kothari MD History of Present Illness 69 year old male with history of hyperlipidemia, JORGE A, HTN, fatty liver, atrial flutter, CAD s/p CABG x 3 (FENG-LAD, ALPESH-Ramus, SVG-PDA) 2023 anticoagulated on ASA/Elqiuis who presents with report of dark stool - GI was asked to evalu ate. He reports on Tuesday he noted some dark, loose stools. Suggests these were loose in consistency and occurred about 4-5 times daily. He reports this continued through Tuesday and . On he noted some BRB mixed with stool, in toilet bowl and on toilet tissue as well. The stool remained black in color. He denies any abdominal pain. No nausea. He had one episode of emesis. He is not sure if color but denies obvious coffee ground appearance or hematemesis. No reflux, regurgitation. Denies dysphagia. He has had fevers intermittently. There is concern for an animal scratch/bite as well. No CP, SOB. + ASA daily (last dose ) + Eliquis daily (last dose ) Uses NSAIDs (Advil 1-2 tablets) 1-2 times a month Daily ETOH use (1-2 drinks daily) Denies tobacco use HGB 15.7 --> 11.7 --> 11 PLT 65 INR 1.1 Lactate 2.5 --> 1.7 BUN 63/SLOT HOST 1.63 Troponin 56.9 --> 77.7 --> 77.5 Tbili 0.4 AST 45 ALT 29 ALKP 87 ETOH level negative Occult positive CTAP 2024: Hepatomegaly with diffuse hepatic steatosis. Colonoscopy 2020: Diverticulosis in the sigmoid colon. - One small polyp at 70 cm proximal to the anus, removed with a cold snare. Resected and retrieved. - One small polyp in the rectum, removed with a cold snare. Resected and retrieved. - The examination was otherwise normal on direct and retroflexion views. Allergies Allergy/AdvReac Type Severity Reaction Status Date / Time shrimp Allergy Severe Anaphylaxis Verified 07/27/24 01:36 No Known Drug Allergies Allergy Unknown Verified 07/27/24 01:36 Home Medications Medication Instructions Recorded Confirmed Type apixaban 5 mg tablet (Eliquis) 5 mg PO AMHS 07/27/24 07/27/24 History aspirin 81 mg tablet 81 mg PO DAILY 07/27/24 07/27/24 History metoprolol succinate 25 mg 12.5 mg PO QAM 07/27/24 07/27/24 History tablet,extended release 24 hr Patient History Medical History (Updated 07/27/24 @ 15:40 by Kingsley Parra MD) Anemia Pancytopenia Acute renal insufficiency CAD (coronary artery disease) Demand ischemia Thrombocytopenia Acute GI bleeding HTN (hypertension) "borderline" No meds History of COVID-19 11/2021- fatigue/lethargy > no current issues Left foot drop "mild" Hx of colonic polyps Surgical History History of coronary artery bypass graft History of cardiac cath 2003- no stents History of colonoscopy H/O local excision of skin lesion H/O umbilical hernia repair Family History Father History of coronary artery bypass graft Other No family history of adverse response to anesthesia Social History Smoking Status: Former smoker Tobacco Type: Cigarettes Second Hand Exposure: No; Do You Dip or Chew Tobacco: No; Hx Alcohol Use: No Hx Substance Use: No Preferred Language: [place] Communication Ability: Effective Automation Manager Required: No Beliefs That Will Affect Care: None Current Living Situation: Spouse 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 Physical Exam Constitutional: WD/WN, vitals as above Respiratory: normal respiratory effort Cardiovascular: Rate/Rhythm: regular rate and regular rhythm Gastrointestinal (Abdomen): Inspection/Auscultation: normal bowel sounds Percussion/Palpation: abdomen soft Skin: no rashes, warm and dry Results & Data Vital Signs (Past 12 Hours) Vital Signs Temp Pulse Pulse Resp BP BP Pulse Ox 07/27/24 07:56 07/27/24 07:33 99.0 F 99 H 18 106/66 97 07/27/24 04:39 97 H 07/27/24 04:37 98 H 18 110/60 98 07/27/24 04:28 98 F 85 18 115/69 99 07/27/24 02:32 97 H 18 106/66 97 07/27/24 01:25 99 H 07/27/24 01:21 96 07/27/24 01:13 98.4 F 99 H 18 113/67 96 O2 Del Method 07/27/24 07:56 Room Air 07/27/24 07:33 Room Air 07/27/24 04:39 07/27/24 04:37 Room Air 07/27/24 04:28 Room Air 07/27/24 02:32 Room Air 07/27/24 01:25 07/27/24 01:21 Room Air 07/27/24 01:13 Room Air Laboratory Results 07/27/24 07/27/24 07/27/24 Range/Units 07:35 05:44 02:47 WBC (4.8-10.8) K/ul RBC (4.70-6.10) M/uL Hgb 11.0 L (14.0-18.0) g/dl POC Hgb (14.0-18.0) g/dl Hct 31.8 L (42.0-52.0) % POC Hct (42-52) % MCV (80.0-100.0) fL MCH (25.0-34.0) pg MCHC (32.0-36.0) g/dL RDW Std Deviation (36.4-46.3) fL RDW Coeff of Marcia (11.5-14.5) % Plt Count (130-400) K/uL MPV (9.4-12.4) fL Immature Gran % (Auto) % Neut % (Auto) % Lymph % (Auto) % [place] % (Auto) % Eos % (Auto) % Baso % (Auto) % Neut # (Auto) (1.40-6.50) K/uL Lymph # (Auto) (1.20-3.40) K/uL [place] # (Auto) (0.11-0.59) K/uL Eos # (Auto) (0.00-0.50) K/uL Baso # (Auto) (0.00-0.20) K/uL Immature Gran # (Auto) (0.01-0.20) K/uL Platelet Estimate (Normal) Echinocytes Peripher Smr Path Cons PT (9.0-12.0) Seconds INR (0.9-1.1) APTT (21-31) Seconds PTT Ratio VBG pH 7.34 L (7.36-7.41) VBG pCO2 41 (38-50) mmHg VBG pO2 20 mmHg VBG HCO3 22 mmol/L VBG O2 Saturation < 60.0 % VBG Base Excess -3.5 mEq/L POC Sodium (135-144) mmol/L Sodium (136-145) mmol/L POC Potassium (3.3-5.0) mmol/L Potassium (3.5-5.1) mmol/L POC Chloride (101-112) mmol/L Chloride (98-107) mmol/L Carbon Dioxide (21-32) mmol/L POC Total CO2 (24-31) mmol/L Anion Gap (3-11) POC Anion Gap (16-25) mmol/L POC BUN (7-18) mg/dl BUN (6-23) mg/dl Creatinine (0.6-1.4) mg/dl POC Creatinine (0.6-1.3) mg/dl Est Cr Clr Drug Dosing ml/min eGFR BUN/Creatinine Ratio (10-20) Glucose (70-99(Fasting)) mg/dl POC Glucose (other) (70-99) mg/dl Estimat Average Glucose 120 mg/dl Hemoglobin A1c 5.8 H (4.5-5.6) % Lactate 1.7 (0.4-2.0) mmol/L Calcium (8.6-10.3) mg/dl POC Ioniz Calcium Nam (1.12-1.32) mmol/l Magnesium (1.7-2.4) mg/dl Total Bilirubin (0.2-1.0) mg/dl AST (13-39) U/L ALT (7-52) U/L Alkaline Phosphatase (34-104) U/L Troponin I High Sens 77.5 H* 77.7 H* D (0-20) pg/ml Total Protein (6.0-8.3) gm/dl Albumin (3.4-5.0) gm/dl Globulin (2.5-4.0) gm/dl Albumin/Globulin Ratio (0.9-2) Procalcitonin (0-0.5) ng/ml Urine Color Yellow Urine Appearance Cloudy A (Clear) Urine pH 5.5 (4.5-7.5) Ur Specific Emmett 1.029 (1.000-1.030) Urine Protein 1+ H (Negative) Urine Glucose (UA) Negative (Negative) Urine Ketones Negative (Negative) Urine Blood Negative (Negative) Urine Nitrite Negative (Negative) Urine Bilirubin Negative (Negative) Urine Urobilinogen Negative (Negative) Ur Leukocyte Esterase Negative (Negative) Urine WBC (Auto) 0-5 (0-5) /hpf Urine RBC (Auto) 3-5 H (0-2) /hpf U Hyaline Cast (Auto) 11-20 H (0-2) /lpf U Epithel Cells (Auto) 0-2 (0-2) /hpf Urine Bacteria (Auto) None Seen (None Seen) Urine Comment POC Stool Occult Blood (Negative) Ethyl Alcohol mg/dL < 10.0 (<10.0) mg/dl Anaplasma Smear A. phagocytophilum DNA Babesia Smear Babesia microti DNA PCR Lyme Disease Screen (Negative) Blood Type Blood Type Recheck Antibody Screen Crossmatch 07/27/24 07/27/24 07/27/24 Range/Units 02:43 01:35 01:34 WBC (4.8-10.8) K/ul RBC (4.70-6.10) M/uL Hgb (14.0-18.0) g/dl POC Hgb (14.0-18.0) g/dl Hct (42.0-52.0) % POC Hct (42-52) % MCV (80.0-100.0) fL MCH (25.0-34.0) pg MCHC (32.0-36.0) g/dL RDW Std Deviation (36.4-46.3) fL RDW Coeff of Marcia (11.5-14.5) % Plt Count (130-400) K/uL MPV (9.4-12.4) fL Immature Gran % (Auto) % Neut % (Auto) % Lymph % (Auto) % [place] % (Auto) % Eos % (Auto) % Baso % (Auto) % Neut # (Auto) (1.40-6.50) K/uL Lymph # (Auto) (1.20-3.40) K/uL [place] # (Auto) (0.11-0.59) K/uL Eos # (Auto) (0.00-0.50) K/uL Baso # (Auto) (0.00-0.20) K/uL Immature Gran # (Auto) (0.01-0.20) K/uL Platelet Estimate (Normal) Echinocytes Peripher Smr Path Cons PT (9.0-12.0) Seconds INR (0.9-1.1) APTT (21-31) Seconds PTT Ratio VBG pH (7.36-7.41) VBG pCO2 (38-50) mmHg VBG pO2 mmHg VBG HCO3 mmol/L VBG O2 Saturation % VBG Base Excess mEq/L POC Sodium (135-144) mmol/L Sodium (136-145) mmol/L POC Potassium (3.3-5.0) mmol/L Potassium (3.5-5.1) mmol/L POC Chloride (101-112) mmol/L Chloride (98-107) mmol/L Carbon Dioxide (21-32) mmol/L POC Total CO2 (24-31) mmol/L Anion Gap (3-11) POC Anion Gap (16-25) mmol/L POC BUN (7-18) mg/dl BUN (6-23) mg/dl Creatinine (0.6-1.4) mg/dl POC Creatinine (0.6-1.3) mg/dl Est Cr Clr Drug Dosing ml/min eGFR BUN/Creatinine Ratio (10-20) Glucose (70-99(Fasting)) mg/dl POC Glucose (other) (70-99) mg/dl Estimat Average Glucose mg/dl Hemoglobin A1c (4.5-5.6) % Lactate 2.5 H* (0.4-2.0) mmol/L Calcium (8.6-10.3) mg/dl POC Ioniz Calcium Nam (1.12-1.32) mmol/l Magnesium (1.7-2.4) mg/dl Total Bilirubin (0.2-1.0) mg/dl AST (13-39) U/L ALT (7-52) U/L Alkaline Phosphatase (34-104) U/L Troponin I High Sens (0-20) pg/ml Total Protein (6.0-8.3) gm/dl Albumin (3.4-5.0) gm/dl Globulin (2.5-4.0) gm/dl Albumin/Globulin Ratio (0.9-2) Procalcitonin (0-0.5) ng/ml Urine Color Urine Appearance (Clear) Urine pH (4.5-7.5) Ur Specific Emmett (1.000-1.030) Urine Protein (Negative) Urine Glucose (UA) (Negative) Urine Ketones (Negative) Urine Blood (Negative) Urine Nitrite (Negative) Urine Bilirubin (Negative) Urine Urobilinogen (Negative) Ur Leukocyte Esterase (Negative) Urine WBC (Auto) (0-5) /hpf Urine RBC (Auto) (0-2) /hpf U Hyaline Cast (Auto) (0-2) /lpf U Epithel Cells (Auto) (0-2) /hpf Urine Bacteria (Auto) (None Seen) Urine Comment POC Stool Occult Blood (Negative) Ethyl Alcohol mg/dL (<10.0) mg/dl Anaplasma Smear A. phagocytophilum DNA Pending Babesia Smear Babesia microti DNA PCR Pending Lyme Disease Screen (Negative) Blood Type B Positive Blood Type Recheck B Positive Antibody Screen NEGATIVE Crossmatch See Detail 07/27/24 07/27/24 07/27/24 Range/Units 01:19 01:04 01:00 WBC 4.38 L (4.8-10.8) K/ul RBC 3.64 L (4.70-6.10) M/uL Hgb 11.7 L (14.0-18.0) g/dl POC Hgb 10.5 L (14.0-18.0) g/dl Hct 34.9 L (42.0-52.0) % POC Hct 31 L (42-52) % MCV 95.9 (80.0-100.0) fL MCH 32.1 (25.0-34.0) pg MCHC 33.5 (32.0-36.0) g/dL RDW Std Deviation 42.3 (36.4-46.3) fL RDW Coeff of Marcia 12.0 (11.5-14.5) % Plt Count 65 L (130-400) K/uL MPV 12.2 (9.4-12.4) fL Immature Gran % (Auto) 0.2 % Neut % (Auto) 85.4 % Lymph % (Auto) 8.0 % [place] % (Auto) 6.2 % Eos % (Auto) 0.0 % Baso % (Auto) 0.2 % Neut # (Auto) 3.74 (1.40-6.50) K/uL Lymph # (Auto) 0.35 L (1.20-3.40) K/uL [place] # (Auto) 0.27 (0.11-0.59) K/uL Eos # (Auto) 0.00 (0.00-0.50) K/uL Baso # (Auto) 0.01 (0.00-0.20) K/uL Immature Gran # (Auto) 0.01 (0.01-0.20) K/uL Platelet Estimate Decreased L (Normal) Echinocytes 1+ Peripher Smr Path Cons PT 11.9 (9.0-12.0) Seconds INR 1.1 (0.9-1.1) APTT 26 (21-31) Seconds PTT Ratio 1.0 VBG pH (7.36-7.41) VBG pCO2 (38-50) mmHg VBG pO2 mmHg VBG HCO3 mmol/L VBG O2 Saturation % VBG Base Excess mEq/L POC Sodium 135 (135-144) mmol/L Sodium 136 (136-145) mmol/L POC Potassium 4.2 (3.3-5.0) mmol/L Potassium 4.2 (3.5-5.1) mmol/L POC Chloride 107 (101-112) mmol/L Chloride 105 (98-107) mmol/L Carbon Dioxide 17 L (21-32) mmol/L POC Total CO2 17 L (24-31) mmol/L Anion Gap 14 H (3-11) POC Anion Gap 16.0 (16-25) mmol/L POC BUN 67 H (7-18) mg/dl BUN 63 H (6-23) mg/dl Creatinine 1.63 H (0.6-1.4) mg/dl POC Creatinine 1.8 H (0.6-1.3) mg/dl Est Cr Clr Drug Dosing 46.3 ml/min eGFR 45.05 BUN/Creatinine Ratio 38.7 H (10-20) Glucose 174 H (70-99(Fasting)) mg/dl POC Glucose (other) 165 H (70-99) mg/dl Estimat Average Glucose mg/dl Hemoglobin A1c (4.5-5.6) % Lactate (0.4-2.0) mmol/L Calcium 8.3 L (8.6-10.3) mg/dl POC Ioniz Calcium Nam 1.03 L (1.12-1.32) mmol/l Magnesium 2.3 (1.7-2.4) mg/dl Total Bilirubin 0.4 (0.2-1.0) mg/dl AST 45 H (13-39) U/L ALT 29 (7-52) U/L Alkaline Phosphatase 55 (34-104) U/L Troponin I High Sens 56.9 H* (0-20) pg/ml Total Protein 5.7 L (6.0-8.3) gm/dl Albumin 3.3 L (3.4-5.0) gm/dl Globulin 2.4 L (2.5-4.0) gm/dl Albumin/Globulin Ratio 1.4 (0.9-2) Procalcitonin 2.65 H (0-0.5) ng/ml Urine Color Urine Appearance (Clear) Urine pH (4.5-7.5) Ur Specific Emmett (1.000-1.030) Urine Protein (Negative) Urine Glucose (UA) (Negative) Urine Ketones (Negative) Urine Blood (Negative) Urine Nitrite (Negative) Urine Bilirubin (Negative) Urine Urobilinogen (Negative) Ur Leukocyte Esterase (Negative) Urine WBC (Auto) (0-5) /hpf Urine RBC (Auto) (0-2) /hpf U Hyaline Cast (Auto) (0-2) /lpf U Epithel Cells (Auto) (0-2) /hpf Urine Bacteria (Auto) (None Seen) Urine Comment POC Stool Occult Blood Positive A (Negative) Ethyl Alcohol mg/dL (<10.0) mg/dl Anaplasma Smear See Comment A. phagocytophilum DNA Babesia Smear See Comment Babesia microti DNA PCR Lyme Disease Screen Negative (Negative) Blood Type Blood Type Recheck Antibody Screen Crossmatch PG Care Time/CCT Total # of Minutes Spent Total Time Spent with Patient: Total time spent is greater than 50% in coordination of care (as documented) at patient's floor/unit and/or counseling patient: Coding Level of Care Code 62687 IN/OBS CONSULT LVL 4,60M Diagnoses Dark stools R19.5
[2024-07-27] MEDS ORDERED: STAT IV/IM STA (10:55)
[2024-07-27] MEDS: OCTREOTIDE ACETATE 500 MCG in SODIUM CHLORIDE 0.9% 100 ML IV SCH (11:57)
[2024-07-27] MEDS: OCTREOTIDE ACETATE 50 MCG in SYRINGE 9.5 ML IV ONE (11:57)
[2024-07-27 12:04] LABS: Hematocrit (blood only) 26.3 % (42.0-52.0); Hemoglobin 9.4 g/dl (14.0-18.0)
--- NOTE | 2024-07-27 12:15 | Communication Note ---
Patient seen and examined at bedside. Patient states he came in because his told him to. Noticed black and red stool in his toilet, has seen it before over the past few days. On exam, patient well appearing, no abdominal tenderness, no CVA tenderness. Complex patient. Sepsis in setting of possible pyelonephritis, also with possibility of both upper and lower GI bleeds with acute blood loss anemia and BUN concerning for active bleed. Also at risk for alcohol withdrawal. Hx of CABG. Pancytopenia in setting of alcohol use and liver disease. GI consulted, recommending cardiology consult for cardiac clearance before scope. Will need q8hr CBCs until scope given concern for active hemorrhage. Start octreotide drip with bolus and protonix drip in setting of active bleed per GI. Will transfer to PCU for higher level of monitoring. Date of Service: July 27, 2024
--- NOTE | 2024-07-27 13:25 | Electrocardiogram Report ---
Test Reason : Blood Pressure : */* mmHG Vent. Rate : 98 BPM Atrial Rate : 98 BPM P-R Int : 176 ms QRS Dur : 86 ms QT Int : 338 ms P-R-T Axes : 53 -10 139 degrees QTcB Int : 431 ms Poor data quality, interpretation may be adversely affected Sinus rhythm with marked sinus arrhythmia Moderate voltage criteria for LVH, may be normal variant Inferior-posterior infarct , age undetermined Abnormal ECG When compared with ECG of 27-Jul-2024 01:08, (unconfirmed) Significant changes have occurred Confirmed by Samy Fraire ([id number]) on 07/27/2024 1:24:55 PM Referred By: REFERRED SELF Confirmed By: Samy Fraire
--- NOTE | 2024-07-27 13:26 | Electrocardiogram Report ---
Test Reason : Blood Pressure : */* mmHG Vent. Rate : 99 BPM Atrial Rate : 147 BPM P-R Int : 136 ms QRS Dur : 96 ms QT Int : 362 ms P-R-T Axes : 51 54 -45 degrees QTcB Int : 464 ms Sinus tachycardia with Fusion complexes Prolonged QT Abnormal ECG When compared with ECG of 24-Jan-2024 19:53, Fusion complexes are now Present Vent. rate has increased by 36 bpm Confirmed by Samy Fraire ([id number]) on 07/27/2024 1:26:00 PM Referred By: REFERRED SELF Confirmed By: Samy Fraire
--- NOTE | 2024-07-27 13:55 | Cardiology Consultation ---
Date of Consultation July 27, 2024 Assessment & Plan (1) Demand ischemia: (2) Preoperative cardiovascular examination: Patient presents with diarrheal illness, blood per rectum, anemia and pancytopenia with concerns for underlying infectious etiology. Patient with mild elevation in the high-sensitivity troponin and transient ST segment depression noted suggestive of myocardial strain in the setting of noncardiac illness. Patient denies symptoms of angina. Echocardiogram findings reassuring. Agree with plans to hold aspirin and Eliquis. Patient states he has not had Eliquis since yesterday morning or metoprolol since yesterday morning. Systolic blood pressure just above 100 and I think would be reasonable to resume his metoprolol in an effort to prevent recurrent atrial fibrillation/flutter which he is certainly at risk for given his history and given the occasional premature atrial contractions noted on telemetry. Patient stable from a cardiac perspective to undergo an endoscopy if deemed indicated. Tawana Palomo DO History of Present Illness Attending Physician: Humble Kothari MD History of Present Illness Mr Coughlin is a 69 year old male seen in cardiology consultation per the request of Dr Kothari for the evaluation of elevation in HS troponin, abnormal EKG, and preoperative cardiac evaluation. Patient describes onset of diarrhea 3 days ago. Initially he noted dark stool but no lisa blood. The diarrhea continued and progressed and by yesterday he was noting stool with red blood in his toilet bowl. He felt progressively worse with generalized fatigue. He ultimately presented to the emergency department and hemoglobin on arrival today was 11.7, has since trended down to 9.5, from a baseline of 15 g/dL in January 2024. Along with his low hemoglobin, he was found to have pancytopenia with low white blood cell count, and low platelet count. The patient denies any current or recent chest discomfort, shortness of breath or subjective palpitations. Past Cardiac History: 1.In January, patient presented for an elective hernia surgery and was found to be in a rate controlled atrial flutter. He established with cardiology at the [facility] and was placed on Eliquis. 2.He was subsequently found to have multivessel coronary heart disease and On May 26, 2023, the patient underwent CABG x3 (FENG-LAD, ALPESH-ramus, SVG-PDA) at the [facility]. Had PAF postop that reverted to sinus rhythm on beta blockers and amiodarone.The radial artery was harvested but was not utilized due to poor quality. 3.Asymptomatic carotid disease. Preoperative carotid duplex May, showed right internal carotid artery stenosis of 60-79% with ICA-CCA ratio of 2.6 and left internal carotid artery 20-39% stenosis. Stable findings noted on repeat exam July, within the [facility] system and he is tentatively scheduled for follow-up with [facility] vascular surgery in August, with duplex to be performed in advance of that visit. Allergies Allergy/AdvReac Type Severity Reaction Status Date / Time shrimp Allergy Severe Anaphylaxis Verified 07/27/24 01:36 No Known Drug Allergies Allergy Unknown Verified 07/27/24 01:36 Home Medications Medication Instructions Recorded Confirmed Type apixaban 5 mg tablet (Eliquis) 5 mg PO AMHS 07/27/24 07/27/24 History aspirin 81 mg tablet 81 mg PO DAILY 07/27/24 07/27/24 History metoprolol succinate 25 mg 12.5 mg PO QAM 07/27/24 07/27/24 History tablet,extended release 24 hr Patient History Medical History History of COVID-19 11/2021- fatigue/lethargy > no current issues Left foot drop "mild" Hx of colonic polyps Surgical History History of coronary artery bypass graft History of cardiac cath 2003- no stents History of colonoscopy H/O local excision of skin lesion H/O umbilical hernia repair Family History Father History of coronary artery bypass graft Other No family history of adverse response to anesthesia Social History Smoking Status: Former smoker Tobacco Type: Cigarettes Second Hand Exposure: No; Do You Dip or Chew Tobacco: No; Hx Alcohol Use: No Hx Substance Use: No Preferred Language: Prydein[place] Communication Ability: Effective Sales/Marketing Required: No Beliefs That Will Affect Care: None Current Living Situation: Spouse 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 Other Information That Helps Us Care for You: No Feels Safe at Home: Yes Safety Concerns: Feels Safe At This Time Assistive Devices: Glasses Review of Systems Review of Systems: All systems reviewed & are unremarkable except as noted in HPI & below Physical Exam Physical Exam: Temp Pulse Resp BP Pulse Ox O2 Del Method 37.2 C 96 H 18 104/63 92 Room Air 07/27/24 11:44 07/27/24 11:44 07/27/24 11:44 07/27/24 11:44 07/27/24 11:44 07/27/24 11:44 General: no acute distress and stated age Eyes: conjunctiva are pink and non-injected, sclera clear Neck: normal jugular venous pulse, no hepatojugular reflux Chest: normal shape and normal respiratory effort Lungs: clear to auscultation and percussion Cardiac Exam: - regular heart sounds, no murmurs, rubs, or gallops, no jugular venous distention Abdomen: abdomen soft, non-tender, no abnormal masses and no hepatosplenomegaly Musculoskeletal: no gait disturbance, no weakness Extremities: no edema and no cyanosis Neuro:awake, conversant, follows commands, no focal motor deficits Results & Data Laboratory Results Cardiac Enzymes 07/27/24 07/27/24 07/27/24 Range/Units 01:00 02:47 05:44 AST 45 H (13-39) U/L Troponin I High Sens 56.9 H* 77.7 H* D 77.5 H* (0-20) pg/ml Coagulation 07/27/24 Range/Units 01:00 PT 11.9 (9.0-12.0) Seconds APTT 26 (21-31) Seconds CBC 07/27/24 07/27/24 07/27/24 Range/Units 01:00 05:44 11:47 WBC 4.38 L (4.8-10.8) K/ul RBC 3.64 L (4.70-6.10) M/uL Hgb 11.7 L 11.0 L 9.4 L (14.0-18.0) g/dl Hct 34.9 L 31.8 L 26.3 L (42.0-52.0) % Plt Count 65 L (130-400) K/uL Neut # (Auto) 3.74 (1.40-6.50) K/uL Lymph # (Auto) 0.35 L (1.20-3.40) K/uL [place] # (Auto) 0.27 (0.11-0.59) K/uL Eos # (Auto) 0.00 (0.00-0.50) K/uL Baso # (Auto) 0.01 (0.00-0.20) K/uL Comprehensive Metabolic Panel 07/27/24 Range/Units 01:00 Sodium 136 (136-145) mmol/L Potassium 4.2 (3.5-5.1) mmol/L Chloride 105 (98-107) mmol/L Carbon Dioxide 17 L (21-32) mmol/L BUN 63 H (6-23) mg/dl Creatinine 1.63 H (0.6-1.4) mg/dl Glucose 174 H (70-99(Fasting)) mg/dl Calcium 8.3 L (8.6-10.3) mg/dl AST 45 H (13-39) U/L ALT 29 (7-52) U/L Alkaline Phosphatase 55 (34-104) U/L Total Protein 5.7 L (6.0-8.3) gm/dl Albumin 3.3 L (3.4-5.0) gm/dl Intake and Output 07/26/24 07/27/24 07/27/24 22:59 06:59 14:59 Intake Total 1598.167 / 1598.167 790 / 790 Balance 1598.167 / 1598.167 790 / 790 Intake: IV 1598.167 / 1598.167 790 / 790 Doxycycline Hyclate 100 mg In 100 / 100 Dextrose 5% Mini-B 100 ml @ 50 mls/hr IV NOW STA Rx#:[id number] Lactated Ringer's 1,000 ml @ 310 / 310 690 / 690 100 mls/hr IV .Q10H ONE Rx#: [id number] PANTOprazole 40 mg In Dextrose 89 / 89 100 / 100 5% Mini-B 100 ml @ 8 MG/HR 20 mls/hr IV Q5H [facility] Rx#:[id number] PANTOprazole 80 mg In Dextrose 120 / 120 5% 100 ml @ 480 mls/hr IV NOW ONE Rx#:[id number] Sodium Chloride 0.9% 1,000 ml @ 929.167 / 929.167 125 mls/hr IV .Q8H STA Rx#: [id number] cefTRIAXone SODIUM 2,000 mg In 50 / 50 50 ml @ 100 mls/hr IV NOW STA Rx#:[id number] Other: Other Intake Source NPO Weight 79.3 kg Weight Measurement Method Standing Scale Diagnostic Findings Telemetry reveals sinus rhythm with rate in the range of 80 to 90 bpm with occasional PACs and 1 brief run of paroxysmal atrial tachycardia today. EKG performed 07/27/2024 at 1:08 AM and interpreted independently: Sinus rhythm at 99 bpm with 1 fusion complexes noted, ST segment depression noted in the precordial leads and inferior leads consistent with inferior and anterolateral ischemia. Repeat tracing 07/27/2024 at 5:21 AM revealed sinus rhythm at 90 bpm, mild inferior and lateral ST-T wave changes, less prominent than on the previous tracing, and not too much different compared to his previous baseline tracing within the [facility] system performed since his bypass surgery. Echocardiogram performed today 07/27/2024: Normal left ventricular myocardial thickness Normal left ventricular wall motion LVEF in the range of 60 to 65% Moderate left atrial enlargement Mild right atrial enlargement Grade 1 diastolic dysfunction.
--- NOTE | 2024-07-27 15:39 | Anesthesiology Consultation ---
Date of Service July 27, 2024 Assessment & Plan (1) Encounter for pre-operative examination: Chart Review Chart Review: Acceptable Risk for Surgery History Surgery Operation Date: 07/27/24 17:30 Proposed Procedures p Esophagogastroduodenoscopy Dr. Chaz Ware MD Height/Weight Height: 5 ft 11 in Weight: 79.3 kg Allergies Allergy/AdvReac Type Severity Reaction Status Date / Time shrimp Allergy Severe Anaphylaxis Verified 07/27/24 01:36 No Known Drug Allergies Allergy Unknown Verified 07/27/24 01:36 Medications Home Medications Medication Instructions Recorded Confirmed Last Taken apixaban 5 mg tablet (Eliquis) 5 mg PO AMHS 07/27/24 07/27/24 Unknown aspirin 81 mg tablet 81 mg PO DAILY 07/27/24 07/27/24 Unknown metoprolol succinate 25 mg 12.5 mg PO QAM 07/27/24 07/27/24 Unknown tablet,extended release 24 hr Active Medications Generic Name Dose Route Start Last Admin Trade Name Freq PRN Reason Stop Dose Admin Folic Acid 1 mg 07/27/24 09:00 07/27/24 08:12 Folic Acid 1 Mg Tab PO 08/26/24 08:59 1 mg QAM ALEJANDRA Administration Pantoprazole Sodium 40 mg/ 100 mls @ 20 mls/hr 07/27/24 01:30 07/27/24 12:07 Dextrose IV 08/26/24 01:29 8 mg/hr Q5H ALEJANDRA 20 mls/hr Administration 8 MG/HR Octreotide Acetate 500 mcg/ 100.5 mls @ 10.05 mls/hr 07/27/24 11:20 07/27/24 11:57 Sodium Chloride IV 08/26/24 11:19 50 mcg/hr .Q10H ALEJANDRA 10.1 mls/hr Administration 50 MCG/HR Multivitamins 1 tab 07/27/24 09:00 07/27/24 08:12 Multivitamin Tab PO 08/26/24 08:59 1 tab QAM ALEJANDRA Administration NPO Date Last Intake of Fluids: 07/27/24 Time Last Intake of Fluids: 14:30 Last Intake of Fluids Comment: sip h20 Date Last Intake of Solids: 07/24/24 Past Medical History Medical History (Updated 07/27/24 @ 15:40 by Kingsley Parra MD) Anemia Pancytopenia Acute renal insufficiency CAD (coronary artery disease) Demand ischemia Thrombocytopenia Acute GI bleeding HTN (hypertension) "borderline" No meds History of COVID-19 11/2021- fatigue/lethargy > no current issues Left foot drop "mild" Hx of colonic polyps Past Family History Family History Father History of coronary artery bypass graft Other No family history of adverse response to anesthesia Past Surgical History Surgical History History of coronary artery bypass graft History of cardiac cath 2003- no stents History of colonoscopy H/O local excision of skin lesion H/O umbilical hernia repair Social History Smoking Status: Former smoker tobacco type: cigarettes Do You Dip or Chew Tobacco: No Hx Alcohol Use: No Alcohol type: wine alcohol intake frequency: 0-2 drinks per day Hx Substance Use: No substance use type: does not use Physical Exam Vital Signs Last Vital Signs Temp 37.2 C 07/27/24 15:07 Pulse 95 H 07/27/24 15:07 Resp 16 07/27/24 15:07 BP 112/59 L 07/27/24 15:07 Pulse Ox 93 07/27/24 15:07 O2 Del Method Room Air 07/27/24 15:07 Testing Laboratory Results 07/27/24 11:47 07/27/24 01:00 PT 11.9 Seconds (9.0-12.0) 07/27/24 01:00 INR 1.1 (0.9-1.1) 07/27/24 01:00 APTT 26 Seconds (21-31) 07/27/24 01:00 Hemoglobin A1c 5.8 % (4.5-5.6) H 07/27/24 05:44 Urine Color Yellow 07/27/24 07:35 Urine Appearance Cloudy (Clear) A 07/27/24 07:35 Urine pH 5.5 (4.5-7.5) 07/27/24 07:35 Ur Specific [place] 1.029 (1.000-1.030) 07/27/24 07:35 Urine Protein 1+ (Negative) H 07/27/24 07:35 Urine Glucose (UA) Negative (Negative) 07/27/24 07:35 Urine Ketones Negative (Negative) 07/27/24 07:35 Urine Nitrite Negative (Negative) 07/27/24 07:35 Ur Leukocyte Esterase Negative (Negative) 07/27/24 07:35 Urine WBC (Auto) 0-5 /hpf (0-5) 07/27/24 07:35 Urine RBC (Auto) 3-5 /hpf (0-2) H 07/27/24 07:35 U Hyaline Cast (Auto) 11-20 /lpf (0-2) H 07/27/24 07:35 U Epithel Cells (Auto) 0-2 /hpf (0-2) 07/27/24 07:35 Urine Bacteria (Auto) None Seen (None Seen) 07/27/24 07:35 Blood Type B Positive 07/27/24 01:34 Antibody Screen NEGATIVE 07/27/24 01:34 Echocardiogram Date: 07/27/24 EF: 60% LV Function: normal Valvular Disease: + no significant valvular disease
[2024-07-27] MEDS ORDERED: ONDANSETRON INJ 2 MG/ML 2 ML VIAL IV PRN (16:42)
--- NOTE | 2024-07-27 17:05 | Communication Note ---
Date of Service: July 27, 2024 EGD No esophageal varices no real portal hypertensive gastropathy. Low platelets may be consumptive related to his bleeding. He had 3 cratered gastric ulcers and numerous smaller gastric erosions. There are also 2 fairly large deep duodenal ulcers. There was a flat pigmented spot on his gastric ulcer which may have been the source of bleeding though cannot exclude the duodenal ulcers as a source. The appearance is suggestive of NSAID effect though he is reported only to take aspirin. Would need to clarify this. If indeed he is only taking aspirin would be concerned about the possibility of concomitant H. pylori biopsies performed of the larger gastric ulcer and submitted for H. pylori. Also probably should check a serum gastrin level. He can stop his octreotide. Protonix drip for 48 hours and then can be switched to oral twice daily PPI therapy. Eliquis should be held for minimum of 14 days. Aspirin can be resumed in 24 hours.
--- NOTE | 2024-07-27 17:11 | GI REPORT ---
[facility] Patient: JELENA PATTON : 1955 Sex at : Male Age: 69 Years Procedure: Upper GI endoscopy Date: 07/27/2024 Attending Physician: Antwon Ware MD Referring MD: Referred Self; Humble Kothari MD Indications: - Suspected upper gastrointestinal bleeding - Melena Medications: - Monitored Anesthesia Care Complications: - No immediate complications. Estimated Blood Loss: - Estimated blood loss was minimal. Procedure: - The egd scope was introduced through the mouth and advanced to the second part of the duodenum. - The upper GI endoscopy was accomplished without difficulty. - The patient tolerated the procedure well. Findings: - The examined esophagus was normal. - Many non-obstructing non-bleeding cratered gastric ulcers of significant severity with pigmented material were found in the gastric antrum. The largest lesion was 30 mm in largest dimension. There is no evidence of perforation. Biopsies were taken with a cold forceps for histology. histology - Two non-bleeding cratered duodenal ulcers with no stigmata of bleeding were found in the duodenal bulb. The largest lesion was 20 mm in largest dimension. Impression: - Normal esophagus. - Non-obstructing non-bleeding gastric ulcers with pigmented material. There is no evidence of perforation. Biopsied. - Non-bleeding duodenal ulcers with no stigmata of bleeding. Recommendation: - Await pathology results. - Continue IV Protonix for 48 hours. Should remain off Eliquis for 14 days. Can resume aspirin in 24 to 48 hours as required. He can stop his octreotide. Clarify whether there is any NSAID use. 81 mg aspirin potentially could cause the findings though they appear to be more severe than 1 would expect. Rule out H. pylori and elevated gastrin levels. Procedure Code(s): - 92826, Esophagogastroduodenoscopy, flexible, transoral; with biopsy, single or multiple Diagnosis Code(s): - K92.1, Melena (includes Hematochezia) - K25.9, Gastric ulcer, unspecified as acute or chronic, without hemorrhage or perforation - K26.9, Duodenal ulcer, unspecified as acute or chronic, without hemorrhage or perforation CPT(R) - 2023 copyright [employer]. All Rights Reserved. The CPT codes, CCI edits and ICD codes generated are intended as suggestions and were generated based on input data. These codes are preliminary and upon net sorter review may be revised to meet current compliance and payer requirements. The provider is responsible for the final determination of appropriate codes, and modifiers. Antwon Ware MD This document has been electronically signed. Note Initiated:07/27/2024 Note Completed:07/27/2024 5:10 PM [id number]
--- NOTE | 2024-07-27 17:16 | Communication Note ---
Date of Service: July 27, 2024 Reviewed with patient and recovery the findings. Does state he takes ibuprofen for aches and pains. It is likely the combination of aspirin and ibuprofen that result in the significant ulcerations found on today's exam. Advised patient he should avoid ibuprofen. With the severity of his ulceration and bleed I would leave him on a PPI indefinitely even if avoids ibuprofen as I believe aspirin will be required going forward
--- NOTE | 2024-07-27 18:05 | Anesthesiology Progress Note ---
Date of Service July 27, 2024 Anesthesia Post Procedure Vital Signs Vital Signs: Temp Pulse Pulse Resp BP BP BP 07/27/24 17:37 75 16 97/57 L 07/27/24 17:24 80 16 96/53 L 07/27/24 17:09 37.2 C 81 14 107/61 07/27/24 15:07 37.2 C 95 H 16 112/59 L 07/27/24 11:44 37.2 C 96 H 18 104/63 07/27/24 07:56 07/27/24 07:33 37.2 C 99 H 18 106/66 07/27/24 07:10 94 H 07/27/24 04:39 97 H 07/27/24 04:37 98 H 18 110/60 07/27/24 04:28 36.6 C 85 18 115/69 07/27/24 02:32 97 H 18 106/66 07/27/24 01:25 99 H 07/27/24 01:21 07/27/24 01:13 36.9 C 99 H 18 113/67 Pulse Ox O2 Del Method 07/27/24 17:37 94 Room Air 07/27/24 17:24 95 Room Air 07/27/24 17:09 95 Room Air 07/27/24 15:07 93 Room Air 07/27/24 11:44 92 Room Air 07/27/24 07:56 Room Air 07/27/24 07:33 97 Room Air 07/27/24 07:10 07/27/24 04:39 07/27/24 04:37 98 Room Air 07/27/24 04:28 99 Room Air 07/27/24 02:32 97 Room Air 07/27/24 01:25 07/27/24 01:21 96 Room Air 07/27/24 01:13 96 Room Air Transfer of Care Handoff Completed per policy Notes Mental Status: alert / awake / arousable and participated in evaluation Patient Amnestic to Procedure: Yes Nausea / Vomiting: adequately controlled Pain: adequately controlled Airway Patency, RR, SpO2: stable & adequate BP & HR: stable & adequate Hydration State: stable & adequate Anesthetic Complications: no major complications apparent
[2024-07-27] MEDS: METOPROLOL SUCC 25MG EXT REL TAB PO SCH (18:06)
[2024-07-27] MEDS: LIDOCAINE 2% 2 ML VIAL/AMP(20MG/ML) INFIL ONE (18:07)
[2024-07-27] MEDS: PROPOFOL IV EMULSION 10 MG/ML 20 ML VIAL IV ONE (18:07)
[2024-07-27] MEDS: PHENYLEPHRINE 100MCG/ML 5ML SYR ONE (18:07)
[2024-07-27 18:30] LABS: Hematocrit (blood only) 25.8 % (42.0-52.0); Hemoglobin 8.9 g/dl (14.0-18.0); Mean Corpuscular Hgb Conc 34.5 g/dL (32.0-36.0); Mean Corpuscular Volume 92.8 fL (80.0-100.0); Mean Platelet Volume 11.9 fL (9.4-12.4); Platelet Count 71 K/uL (130-400); RDW Coefficient of Variation 11.9 % (11.5-14.5); RDW Standard Deviation 40.8 fL (36.4-46.3); Red Blood Count 2.78 M/uL (4.70-6.10); White Blood Count 2.33 K/ul (4.8-10.8)
[2024-07-27] MEDS: DOXYCYCLINE HYCLATE 100 MG CAP PO SCH (21:45)
[2024-07-27 22:08] LABS: A calco-baum cmplx NotReported Not Detected (NotDetected); Bact fragilis Not Reported Not Detected (NotDetected); Blood Culture Id Panel See PCR Comment (NotDetected); C auris Not Reported Not Detected (NotDetected); Calbicans Not Reported Not Detected (NotDetected); Candida glabrata Not Reported Not Detected (NotDetected); Candida krusei Not Reported Not Detected (NotDetected); Cneoformans/gatti Not Reported Not Detected (NotDetected); Cparapsilosis Not Reported Not Detected (NotDetected); Ctropicalis Not Reported Not Detected (NotDetected); E cloacae compx Not Reported Not Detected (NotDetected); Efaecalis Not Reported Not Detected (NotDetected); Efaecium Not Reported Not Detected (NotDetected); Enterobacterales Not Reported Not Detected (NotDetected); Escherichia coli Not Reported Not Detected (NotDetected); H influenzae Not Reported Not Detected (NotDetected); K aerogenes Not Reported Not Detected (NotDetected); Koxytoca Not Reported Not Detected (NotDetected); Kpneumoniae grp Not Reported Not Detected (NotDetected); Lmonocyt Not Reported Not Detected (NotDetected); N meningitidis Not Reported Not Detected (NotDetected); P aeruginosa Not Reported Not Detected (NotDetected); Proteus spp Not Reported Not Detected (NotDetected); Salmonella spp Not Reported Not Detected (NotDetected); Staph lugdunensis Not Reported Not Detected (NotDetected); Staph spp. Not Reported DETECTED (NotDetected); Staphaureus Not Reported Not Detected (NotDetected); Staphepi Not Reported Not Detected (NotDetected); Stenmaltophilia Not Reported Not Detected (NotDetected); Strep agal(GrpB) Not Reported Not Detected (NotDetected); Strep pneum Not Reported Not Detected (NotDetected); Strep pyog (GrpA) Not Reported Not Detected (NotDetected); Strep spp Not Reported Not Detected (NotDetected)
[2024-07-27 22:17] LABS: Staphylococcus spp. DETECTED (NotDetected)
[2024-07-27] MEDS ORDERED: GABAPENTIN 600 MG TAB PO SCH (23:30)
[2024-07-28 07:19] LABS: Hematocrit (blood only) 26.2 % (42.0-52.0); Hemoglobin 8.9 g/dl (14.0-18.0); Mean Corpuscular Hemoglobin 31.6 pg (25.0-34.0); Mean Corpuscular Volume 92.9 fL (80.0-100.0); Mean Platelet Volume 11.1 fL (9.4-12.4); Platelet Count 93 K/uL (130-400); RDW Coefficient of Variation 11.9 % (11.5-14.5); RDW Standard Deviation 41.1 fL (36.4-46.3); Red Blood Count 2.82 M/uL (4.70-6.10); White Blood Count 2.93 K/ul (4.8-10.8)
[2024-07-28 07:50] LABS: Albumin Globulin Ratio 1.5 (0.9-2); Bilirubin,Total 0.4 mg/dl (0.2-1.0); Calcium 7.7 mg/dl (8.6-10.3); Creatinine Clr Calc Pharmacy 80.4 ml/min; Potassium 4.1 mmol/L (3.5-5.1); Total Protein 4.9 gm/dl (6.0-8.3)
--- NOTE | 2024-07-28 08:38 | Hospitalist Progress Note ---
Date of Service July 28, 2024 Assessment & Plan (1) Acute blood loss anemia: (2) Severe sepsis: (3) Pancytopenia: (4) Elevated troponin: Plan Patient is a 69-year-old male with past medical history significant for HLD, HTN, CAD s/p CABG x 3, bilateral carotid artery stenosis, atrial fibrillation/flutter on Eliquis, JORGE A intolerant to CPAP, fatty liver disease, alcohol abuse, colonic polyps, prediabetes, depression and other problems listed below who presented to the ED for evaluation of bloody diarrhea on 07/27/24. #Upper/lower GI bleed #Acute blood loss anemia Predisposed 2/2 ASA, Eliquis use S/p Kcentra in ED GI consulted Initially on IV octreotide bolus/drip Underwent EGD on 07/27 w/ following findings: -Normal esophagus -Non-obstructing non-bleeding cratered gastric ulcers w/ pigmented material, no evidence of perforation (biopsied) -Non-bleeding fairly deep duodenal ulcers w/ no stigmata of bleeding Suspect 2/2 combo ASA/ibuprofen use --> advised to avoid NSAIDs except for daily ASA Check serum gastrin level Octreotide stopped Continue IV Protonix drip for 48hrs, then transition to po PPI BID Eliquis on hold for minimum of 14 days Will continue holding ASA as pt still having dark stools Follow stool studies H/H stabilizing, continue to monitor No indication to transfuse at this time given Hgb>8 #Severe sepsis noted on admission ISO possible pyelonephritis CTAP: mild bilateral perinephric fat stranding CXR negative Lyme negative Additional tickborne illness tests pending UA does not appear grossly infected Check urine culture / prelim blood cxs growing Staph hominis -Likely contaminant -Repeat blood cxs in 48hrs Lactic acidosis resolved s/p IVF Initially was placed on doxy Transition to Rocephin for now #Pancytopenia ISO alcohol abuse, liver disease Fall precautions #Elevated troponin Suspect demand ischemia ISO above EKG w/ transient ST segment depression c/w myocardial strain ISO noncardiac illness TTE reassuring w/ normal LVEF, moderately dilated LA, mildly dilated RA and grade I DD #Afib/aflutter #Chronic anticoagulation Hold Eliquis as per above Continue Toprol-XL #Prediabetes Hgb A1c 5.8% #Alcohol abuse 1-2 drinks/night, last drink 4 days prior to presenting to ED Continue alcohol w/d protocol w/ PRN Ativan Folic acid, thiamine ordered Follow AWSS DVT Prophylaxis: SCDs/TEDs only Disposition: Plan to d/c home when clinically improved Patient seen in collaboration with Dr. Kothari. Please see addendum. I spent a total of 50 minutes coordinating, documenting, and providing care for this patient excluding time spent in the performance of separately billed services or time spent by another provider/QHP. This included personally reviewing all current laboratories and imaging studies, medical reconciliation, outpatient chart review and discussion with specialists. This chart was completed in part utilizing Speech Voice Recognition Software. Grammatical errors, random word insertions, pronoun errors, and incomplete sentences are an occasional consequence of this system due to software limitations, ambient noise, and hardware issues. Any formal questions or concerns about the content, text, or information contained within the body of this dictation should be directly addressed to the provider for clarification. Admission and Anticipated Discharge Date Admission Date: July 27, 2024 Supervising Physician Co-Signing Physician Notes Patient seen and examined at bedside. Had one bloody lisa red blood bowel movement this morning, STAT CBC stable. On exam, appears well, asymptomatic other than trace abdominal pain. Patient has significant ulcerations throughout stomach and duodenum, s/p EGD. Will require another 24 hours of protonix IV push, and lifetime protonix. Counseled on need for no NSAIDs or alcohol moving forward. Switch to ceftriaxone for pyelonephritis noted on imaging. I have seen and discussed the case with the collaborating advanced practitioner. I agree with the above H&P. I have reviewed and confirmed the patients medical history, the findings on physical examination, and the patients diagnosis and treatment plan with Eh CARTER and agree with the information documented. I spent a total of 20 minutes coordinating, documenting, and providing care for this patient excluding time spent in the performance of separately billed services. All of the aforementioned completed outside of collaborating with the assigned advanced practitioner for a full treatment plan. I have reviewed the advanced practitioner's documentation, and I agree with, and take responsibility for the plan of care Subjective Patient seen and examined in E220-1. Endorses feeling well this morning. No further blood per rectum. Denies any abdominal pain, chest pain or SOB. Review of Systems Review of Systems: At least ten systems reviewed and negative, except as noted in the subjective section. Physical Exam Physical Exam: General: WD/WN. NAD. Sitting up in bed. Pleasant. A&Ox4, conversing appropriately. HEENT: Normocephalic, atraumatic. External ear and nose normal, oropharynx normal. Respiratory: Normal respiratory effort, lungs clear to auscultation bilaterally. Cardiovascular: Regular rate, rhythm, normal peripheral pulses, no BLE edema. Abdomen/GI: Active bowel sounds, soft, nontender to palpation in all quadrants. Extremities/MSK: No cyanosis or clubbing, extremities motor strength intact, moves all extremities. Neurologic: No overt focal deficits, CN's II-XI not formally tested but appear grossly intact bilaterally. Results & Data Results & Data Vital Signs (Past 12 Hours) Vital Signs Temp Pulse Pulse Resp BP BP Pulse Ox 07/28/24 07:55 36.7 C 66 16 102/59 L 92 07/28/24 04:13 79 07/28/24 04:08 37.0 C 61 18 95/53 L 95 07/27/24 23:46 37.2 C 80 16 104/68 94 O2 Del Method 07/28/24 07:55 Room Air 07/28/24 04:13 07/28/24 04:08 Room Air 07/27/24 23:46 Room Air Laboratory Results Short CBC 07/27/24 07/28/24 Range/Units 18:09 06:50 WBC 2.33 L 2.93 L (4.8-10.8) K/ul Hgb 8.9 L 8.9 L (14.0-18.0) g/dl Hct 25.8 L 26.2 L (42.0-52.0) % Plt Count 71 L 93 L (130-400) K/uL BMP 07/28/24 06:50 Sodium 138 Potassium 4.1 Chloride 108 H Carbon Dioxide 26 BUN 30 H D Creatinine 0.91 D Glucose 100 H Calcium 7.7 L Liver Function 07/28/24 Range/Units 06:50 Total Bilirubin 0.4 (0.2-1.0) mg/dl AST 55 H (13-39) U/L ALT 32 (7-52) U/L Alkaline Phosphatase 42 (34-104) U/L Albumin 2.9 L (3.4-5.0) gm/dl
[2024-07-28 08:43] LABS: Basophils # (auto) 0.03 K/uL (0.00-0.20); Immature Granulocytes # (auto) 0.02 K/uL (0.01-0.20); Immature Granulocytes % (auto) 0.7 %; Lymphocytes # (auto) 1.19 K/uL (1.20-3.40); Lymphocytes % (auto) 40.6 %; Monocytes # (auto) 0.36 K/uL (0.11-0.59); Monocytes % (auto) 12.3 %; Neutrophils # (auto) 1.33 K/uL (1.40-6.50); Neutrophils % (auto) 45.4 %; Polychromasia 1+
[2024-07-28] MEDS: cefTRIAXone SODIUM 2,000 MG/50 ML BAG IV SCH (09:33)
[2024-07-28] MEDS: THIAMINE HCL 100 MG TAB PO SCH (09:34)
--- NOTE | 2024-07-28 09:37 | Cardiology Progress Note ---
Date of Service July 28, 2024 Assessment & Plan (1) Demand ischemia: (2) Gastric ulcer: Plan: and duodenal ulcers, without stigmata of ongoing bleeding Plan History of paroxysmal atrial fibrillation / flutter, without recurrence since 2022. In addition to ASA 81 mg daily and Eliquis, patient with occasional ibuprofen use. Patient presents with diarrheal illness, blood per rectum, anemia and pancytopenia with concerns for underlying infectious etiology. 1/2 blood cultures with Staphylococcus hominis, possibly contaminant. Lyme screen negative. Anaplasmosis DNA pending. Patient with mild elevation in the high-sensitivity troponin and transient ST segment depression noted suggestive of myocardial strain in the setting of noncardiac illness. Patient denies symptoms of angina. Echocardiogram findings reassuring with normal LVEF, moderate left atrial enlargement and no significant valve disease . * PPI * remain off ASA , Eliquis. GI input noted and appreciated. Remain off Eliquis for at least 2 weeks, ASA sooner. Avoid ibuprofen. * Continue outpatient metoprolol dose * Agree with plan for empiric antibiotics. Tawana Palomo, DO Admission and Anticipated Discharge Date Admission Date: July 27, 2024 Subjective Patient seen in cardiology follow up. Denies chest pain or shortness of breath. No additional blood per rectum. Tolerated EGD well from a cardiac perspective. Telemetry reveals Sr in the 80 with PACs, PVCs. Physical Exam Physical Exam: Temp Pulse Resp BP Pulse Ox O2 Del Method 36.7 C 66 16 102/59 L 92 Room Air 07/28/24 07:55 07/28/24 07:55 07/28/24 07:55 07/28/24 07:55 07/28/24 07:55 07/28/24 07:55 General: no acute distress and stated age Eyes: conjunctiva are pink and non-injected, sclera clear Neck: normal jugular venous pulse, no hepatojugular reflux Chest: normal shape and normal respiratory effort Lungs: clear to auscultation and percussion Cardiac Exam: - regular heart sounds, no murmurs, rubs, or gallops, no jugular venous distention Abdomen: abdomen soft, non-tender, no abnormal masses and no hepatosplenomegaly Musculoskeletal: no gait disturbance, no weakness Extremities: no edema and no cyanosis Neuro:awake, conversant, follows commands, no focal motor deficits Results & Data Vital Signs (Past 12 Hours) Vital Signs Temp Pulse Pulse Resp BP BP Pulse Ox 07/28/24 07:55 36.7 C 66 16 102/59 L 92 07/28/24 04:13 79 07/28/24 04:08 37.0 C 61 18 95/53 L 95 07/27/24 23:46 37.2 C 80 16 104/68 94 O2 Del Method 07/28/24 07:55 Room Air 07/28/24 04:13 07/28/24 04:08 Room Air 07/27/24 23:46 Room Air Laboratory Results Cardiac Enzymes 07/28/24 Range/Units 06:50 AST 55 H (13-39) U/L CBC 07/27/24 07/27/24 07/28/24 Range/Units 11:47 18:09 06:50 WBC 2.33 L 2.93 L (4.8-10.8) K/ul RBC 2.78 L 2.82 L (4.70-6.10) M/uL Hgb 9.4 L 8.9 L 8.9 L (14.0-18.0) g/dl Hct 26.3 L 25.8 L 26.2 L (42.0-52.0) % Plt Count 71 L 93 L (130-400) K/uL Neut # (Auto) 1.33 L (1.40-6.50) K/uL Lymph # (Auto) 1.19 L (1.20-3.40) K/uL [place] # (Auto) 0.36 (0.11-0.59) K/uL Eos # (Auto) 0.00 (0.00-0.50) K/uL Baso # (Auto) 0.03 (0.00-0.20) K/uL Comprehensive Metabolic Panel 07/28/24 Range/Units 06:50 Sodium 138 (136-145) mmol/L Potassium 4.1 (3.5-5.1) mmol/L Chloride 108 H (98-107) mmol/L Carbon Dioxide 26 (21-32) mmol/L BUN 30 H D (6-23) mg/dl Creatinine 0.91 D (0.6-1.4) mg/dl Glucose 100 H (70-99(Fasting)) mg/dl Calcium 7.7 L (8.6-10.3) mg/dl AST 55 H (13-39) U/L ALT 32 (7-52) U/L Alkaline Phosphatase 42 (34-104) U/L Total Protein 4.9 L (6.0-8.3) gm/dl Albumin 2.9 L (3.4-5.0) gm/dl (2) Gastric ulcer Gastric ulcer chronicity: acute
[2024-07-28 12:15] VITALS: RESP 18
[2024-07-28 12:28] LABS: Hematocrit (blood only) 26.1 % (42.0-52.0); Mean Corpuscular Hgb Conc 34.5 g/dL (32.0-36.0); Mean Corpuscular Volume 92.9 fL (80.0-100.0); Mean Platelet Volume 10.9 fL (9.4-12.4); Platelet Count 97 K/uL (130-400); Red Blood Count 2.81 M/uL (4.70-6.10); White Blood Count 3.56 K/ul (4.8-10.8)
[2024-07-28 13:00] LABS: C. diff 027-NAP1-BI NEGATIVE
[2024-07-28 13:35] LABS: Adenovirus F 40/41 PCR Not Detected (NotDetected); Astrovirus PCR Not Detected (NotDetected); Campylobacter PCR Not Detected (NotDetected); Cryptosporidium PCR Not Detected (NotDetected); Cyclospora cayetanensis PCR Not Detected (NotDetected); Entamoeba histolytica PCR Not Detected (NotDetected); Enteroaggregative E.coli(EAEC) Not Detected (NotDetected); Enterotoxigenic E.coli (ETEC) Not Detected (NotDetected); Giardia lamblia PCR Not Detected (NotDetected); Norovirus GI/GII PCR Not Detected (NotDetected); Plesiomonas shigelloides PCR Not Detected (NotDetected); Rotavirus A PCR Not Detected (NotDetected); Salmonella PCR Not Detected (NotDetected); Sapovirus PCR Not Detected (NotDetected); Shiga-like Toxin E.coli (STEC) Not Detected (NotDetected); Shigella/Enteroinvasive E.coli Not Detected (NotDetected); Vibrio cholerae PCR Not Detected (NotDetected); Vibrio species PCR Not Detected (NotDetected); Yersinia enterocolitica PCR Not Detected (NotDetected)
[2024-07-28 14:13] LABS: Cdiff Toxin B Gene (2yr or >) Positive Cdiff Gene (Neg)
[2024-07-28 14:14] LABS: Cdiff Antigen Negative; Cdiff Toxin A+B Negative Cdiff Toxin (Negative)
[2024-07-28 14:16] LABS: Enteropathogenic E.coli (EPEC) DETECTED (NotDetected)
[2024-07-28] MEDS: CIPROFLOXACIN 500 MG TAB PO SCH (16:10)
[2024-07-28 18:22] LABS: Hematocrit (blood only) 25.9 % (42.0-52.0); Hemoglobin 8.8 g/dl (14.0-18.0)
[2024-07-28] MEDS: LACTOBACILLUS ACIDOPHILUS 1 GM PACK PO SCH (21:59)
[2024-07-29 00:52] LABS: Hematocrit (blood only) 24.1 % (42.0-52.0); Hemoglobin 8.4 g/dl (14.0-18.0)
[2024-07-29] MEDS ORDERED: GABAPENTIN 600 MG TAB PO SCH (03:30)
[2024-07-29 06:23] LABS: Hematocrit (blood only) 24.7 % (42.0-52.0); Hemoglobin 8.5 g/dl (14.0-18.0); Mean Corpuscular Hemoglobin 32.2 pg (25.0-34.0); Mean Corpuscular Hgb Conc 34.4 g/dL (32.0-36.0); Mean Corpuscular Volume 93.6 fL (80.0-100.0); Mean Platelet Volume 10.6 fL (9.4-12.4); Platelet Count 100 K/uL (130-400); RDW Coefficient of Variation 11.9 % (11.5-14.5); RDW Standard Deviation 40.4 fL (36.4-46.3); Red Blood Count 2.64 M/uL (4.70-6.10); White Blood Count 4.76 K/ul (4.8-10.8)
[2024-07-29 06:42] LABS: Albumin Globulin Ratio 1.5 (0.9-2); BUN Creatinine Ratio 17.9 (10-20); Bilirubin,Total 0.4 mg/dl (0.2-1.0); Creatinine Clr Calc Pharmacy 93.9 ml/min; Magnesium 1.7 mg/dl (1.7-2.4); Potassium 3.6 mmol/L (3.5-5.1); Total Protein 4.9 gm/dl (6.0-8.3)
[2024-07-29 08:10] LABS: ALC (manual) 3.05 K/uL (1.2-3.4); ANC (manual) 1.48 K/uL (1.4-6.5); Eosinophils # (manual) 0.05 K/uL (0-0.50); Eosinophils % (manual) 1 %; Lymphocytes # (manual) 2.19 K/uL (1.2-3.4); Lymphocytes % (manual) 46 %; Monocytes # (manual) 0.19 K/uL (0.11-0.59); Monocytes % (manual) 4 %; Neutrophils # (manual) 1.48 K/uL (1.40-6.50); Neutrophils % (manual) 31 %; RBC Morphology Unremarkable; Reactive Lymphocytes # (manual) 0.86 K/uL; Reactive Lymphocytes % (manual) 18 %
[2024-07-29] MEDS: CHOLECALCIFEROL 125 MCG (5,000 UNITS) TAB PO SCH (08:45)
[2024-07-29] MEDS ORDERED: ASPIRIN 81 MG ECTAB PO SCH (09:00)
[2024-07-29] MEDS ORDERED: ASPIRIN 81 MG CHEW PO SCH (09:00)
--- NOTE | 2024-07-29 09:48 | Discharge Summary ---
Discharge Summary Date of Service July 29, 2024 Principal Dx & Hospital Course #1 = Principal Diagnosis (1) Acute blood loss anemia: (2) Severe sepsis: (3) Enteropathogenic Escherichia coli infection: (4) Pancytopenia: (5) Elevated troponin: Plan Patient is a 69-year-old male with past medical history significant for HLD, HTN, CAD s/p CABG x 3, bilateral carotid artery stenosis, atrial fibrillation/flutter on Eliquis, JORGE A intolerant to CPAP, fatty liver disease, alcohol abuse, colonic polyps, prediabetes, depression and other problems listed below who presented to the ED for evaluation of bloody diarrhea on 07/27/24. #Upper/lower GI bleed #Acute blood loss anemia Predisposed 2/2 ASA, Eliquis use S/p Kcentra in ED GI consulted Initially on IV octreotide bolus/drip Underwent EGD on 07/27 w/ following findings: -Normal esophagus -Non-obstructing non-bleeding cratered gastric ulcers w/ pigmented material, no evidence of perforation (biopsied) -Non-bleeding fairly deep duodenal ulcers w/ no stigmata of bleeding Suspect 2/2 combo ASA/ibuprofen use --> advised to avoid NSAIDs including daily ASA until otherwise directed by PCP/cards Serum gastrin level pending Octreotide stopped on 07/27 Completed 48hrs IV Protonix drip --> transition to Protonix 40mg BID on d/c Eliquis on hold for minimum of 14 days - pt expressed understanding H/H stabilizing - Hgb 8.5 on d/c Did not require any PRBC transfusions #Severe sepsis noted on admission ISO possible pyelonephritis and EPEC infection CTAP: mild bilateral perinephric fat stranding CXR negative Lyme negative Additional tickborne illness tests pending UA does not appear grossly infected Urine cx pending 02/10 prelim blood cxs growing Staph hominis -Likely contaminant Lactic acidosis resolved s/p IVF Initially was placed on doxy then transitioned to Rocephin Found to have EPEC on 07/28 --> could have been contributing to initial presentation Started on po cipro on 07/28, Rocephin discontinued Set to complete full 7-day course of cipro on d/c --> cover for both possible pyelo and EPEC #Pancytopenia ISO alcohol abuse, liver disease Stable #Elevated troponin Suspect demand ischemia ISO above EKG w/ transient ST segment depression c/w myocardial strain ISO noncardiac illness TTE reassuring w/ normal LVEF, moderately dilated LA, mildly dilated RA and grade I DD #Afib/aflutter #Chronic anticoagulation Hold Eliquis as per above Continue Toprol-XL #Prediabetes Hgb A1c 5.8% #Alcohol abuse 1-2 drinks/night, last drink 4 days prior to presenting to ED AWSS protocol initiated while inpt No s/sx of alcohol w/d while inpt Folic acid, thiamine, multivitamin supplements started #Hypocalcemia #Hypovitaminosis D Started on vit D supplementation Repeat 25-OH vit D level, ionized calcium in 4-6wks Disposition: Pt is being d/c'd home in stable condition w/ close PCP f/u; pt's updated over the phone Patient seen in collaboration with Dr. Kothari. Please see addendum. I spent a total of 55 minutes coordinating, documenting, and providing care for this patient excluding time spent in the performance of separately billed services or time spent by another provider/QHP. This included personally reviewing all current laboratories and imaging studies, medical reconciliation, outpatient chart review and discussion with specialists. This chart was completed in part utilizing Speech Voice Recognition Software. Grammatical errors, random word insertions, pronoun errors, and incomplete sentences are an occasional consequence of this system due to software limitations, ambient noise, and hardware issues. Any formal questions or concerns about the content, text, or information contained within the body of this dictation should be directly addressed to the provider for clarification. Notes For Next Care Provider Repeat CBC and BMP within next 1-2 weeks. Repeat 25-OH vit D level, and ionized calcium in 4-6 weeks. Would benefit from routine outpatient GI follow-up. EGD biopsy results and serum gastrin level still pending. Medication Changes From Visit Protonix 40mg BID Ciprofloxacin 500mg BID x total 7-day course Multivitamin, folate, thiamine supplementation Admission HPI Per Admitting Provider History obtained from patient, family, and records. Medical history significant for CAD status post CABG, atrial fibrillation/flutter on Eliquis, PVD, hypertension, hyperlipidemia, JORGE A (not on CPAP), fatty liver as per records, colonic polyps, diverticulosis as per records, prediabetes, mood disorder, daily alcohol intake, past tobacco abuse. Last confinement 2008 for arrhythmia. 3 days history of diarrhea symptoms described as dark stools associated with nausea symptoms. No emesis, abdominal pain. Some chills at home. Patient unaware of sick contacts. No recent antibiotic Rx or out-of-town travel. No OTC NSAID intake. Bloody bowel movements later noted at home yesterday. Patient feeling lightheaded and weak. Denies headache. No cough symptoms. Not sure about recent tick bites although patient and keep doxycycline stores as needed. SBP noted to be 80s at home upon EMS arrival. Patient brought to ER for evaluation. IV Pepcid, Protonix infusion, famotidine, Kcentra, doxycycline administered at the ER. Medical History as above 2020 colonoscopy showed sigmoid diverticulosis and polyps. 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 Discharge Exam General: WD/WN. NAD. Sitting up in bed. Pleasant. A&Ox4, conversing appropriately. HEENT: Normocephalic, atraumatic. External ear and nose normal, oropharynx normal. Respiratory: Normal respiratory effort, lungs clear to auscultation bilaterally. Cardiovascular: Regular rate, rhythm, normal peripheral pulses, no BLE edema. Abdomen/GI: Active bowel sounds, soft, nontender to palpation in all quadrants. Extremities/MSK: No cyanosis or clubbing, extremities motor strength intact, moves all extremities. Neurologic: No overt focal deficits, CN's II-XI not formally tested but appear grossly intact bilaterally. Updated Medication List Medication Instructions Recorded Confirmed Type apixaban 5 mg tablet (Eliquis) 5 mg PO AMHS 07/27/24 07/27/24 History aspirin 81 mg tablet 81 mg PO DAILY 07/27/24 07/27/24 History metoprolol succinate 25 mg 12.5 mg PO QAM 07/27/24 07/27/24 History tablet,extended release 24 hr cholecalciferol (vitamin D3) 125 125 mcg PO QAM #30 tabs 07/29/24 Rx mcg (5,000 unit) tablet ciprofloxacin HCl 500 mg tablet 500 mg PO BID 6 days #11 tabs 07/29/24 Rx folic acid 1 mg tablet 1 mg PO QAM #30 tabs 07/29/24 Rx multivitamin with folic acid 400 1 tab PO QAM #30 tabs 07/29/24 Rx mcg tablet (Daily-Rona (with folic acid)) pantoprazole 40 mg tablet,delayed 40 mg PO BID #60 tabs 07/29/24 Rx release thiamine HCl (vitamin B1) 100 mg 100 mg PO QAM #30 tabs 07/29/24 Rx tablet Hospital Stay Data Consultations 07/27/24 02:41 ED Decision to Admit Stat 07/27/24 03:32 Consult Gastroenterology Routine 07/27/24 11:09 Consult Cardiology Routine Procedures Performed Operation Date: 07/27/24 17:30 Actual Procedures p EGD Biopsy Cytology(Not Applicable) - Antwon Ware MD Findings: - The examined esophagus was normal. - Many non-obstructing non-bleeding cratered gastric ulcers of significant severity with pigmented material were found in the gastric antrum. The largest lesion was 30 mm in largest dimension. There is no evidence of perforation. Biopsies were taken with a cold forceps for histology. histology - Two non-bleeding cratered duodenal ulcers with no stigmata of bleeding were found in the duodenal bulb. The largest lesion was 20 mm in largest dimension. Impression: - Normal esophagus. - Non-obstructing non-bleeding gastric ulcers with pigmented material. There is no evidence of perforation. Biopsied. - Non-bleeding duodenal ulcers with no stigmata of bleeding. Diagnostic Imagining Performed 07/27/24 01:32 CT Abd and Pelvis [CT abd pelvis wo con] Stat Discharge Instructions Given to Patient (Per Discharging Provider) lei Collier were admitted to [facility] with acute blood loss anemia in the setting of combined upper and lower GI bleeding. You underwent esophagogastroduodenoscopy (EGD) which a scope procedure to examine the esophagus stomach and first part of the small intestine. You were found to have gastric ulcers and duodenal ulcers on your EGD, which were thought to be likely the cause of your GI bleeding. Thankfully your hemoglobin level has stabilized as the active bleeding resolved. You were found to be infected with EPEC, or Enteropathogenic E. coli, which is a type of bacteria (germ) that can cause illness in your gut, especially diarrhea. EPEC spreads through contaminated food and water, often with tiny amounts of feces (poop) in it. This can happen if someone doesn't wash their hands properly after using the bathroom and then handles food or drinks, or if crops are watered with contaminated water. You can also get it from touching someone who is infected, or objects they have touched. You will complete a full 7-day course of ciprofloxacin, which is an antibiotic, to treat this infection. MEDICATION CHANGES: 1. Protonix 40mg TWICE DAILY as directed by GI. 2. Once daily vitamin D supplement - your vitamin D level was incidentally found to be low. 3. Daily vitamin B1, folic acid and multivitamin supplementation. 4. Ciprofloxacin 500mg TWICE DAILY with your next dose being TONIGHT. HOLD OFF ON TAKING YOUR ELIQUIS AND ASPIRIN UNTIL OTHERWISE DIRECTED BY YOUR PCP OR PRIMARY FUNDING SPECIALIST. The above prescriptions have been sent to [facility] for pickup. RECOMMENDATIONS FOR FOLLOW-UP Date & Time: 08/06/2024 @ 11:00 AM Provider: Boom Lovell MD Location: [facility] General Internal Medicine @ [facility] Please attend your PCP follow-up appointment as outlined above. You need to have repeat labs done, including complete blood count (CBC) and comprehensive metabolic panel (CMP), at your PCP follow-up appointment. Seek medical attention if you have: * temperature above 101F * chest pain or trouble breathing * abdominal pain, nausea, vomiting * diarrhea, dark stools or bloody stools * any unanswered questions or concerns Call 911 if symptoms are severe. Please take good care of yourself. It has been a pleasure taking care of you. If you have any questions regarding your recent hospitalization please contact [facility] and request a [facility] Hospitalist @ [phone]. Total Time Total Time Spent Total Time Spent (In Minutes): 55 Supervising Physician Co-Signing Physician Notes Patient seen and examined at bedside. Doing better today, feels ready to go home. On exam, doing well, no tenderness to palpation. Patient has significant ulcerations throughout stomach and duodenum, s/p EGD. Also has EPEC and pyelonephritis. Will finish course of treatment with ciprofloxacin to treat both pyelonephritis and EPEC. Will need lifelong protonix therapy as well. Hold aspirin/eliquis until follow up with PCP given extent of bleeding and lesions. Medically stable for discharge home. I have seen and discussed the case with the collaborating advanced practitioner. I agree with the above H&P. I have reviewed and confirmed the patients medical history, the findings on physical examination, and the patients diagnosis and treatment plan with Eh CARTER and agree with the information documented. I spent a total of 20 minutes coordinating, documenting, and providing care for this patient excluding time spent in the performance of separately billed services. All of the aforementioned completed outside of collaborating with the assigned advanced practitioner for a full treatment plan. I have reviewed the advanced practitioner's documentation, and I agree with, and take responsibility for the plan of care
[2024-07-29 11:20] VITALS: BP 119/62; PULSE 62; TEMP 98.2; O2SAT 94
[2024-07-30] MEDS ORDERED: GABAPENTIN 600 MG TAB PO SCH (15:30)
--- NOTE | 2024-08-01 13:12 | Coding Query ---
PATHOLOGY To promote full compliance with coding requirements relating to patient care, physician participation is requested in all cases of pre coder uncertainty. Please assist us with the question(s) below: Please review the Pathology report and please document any relevant diagnosis(es) below: Diagnosis(es): H. pylori gastritis Thank you Joanna VALERO
[2024-08-01 15:11] LABS: Babesia microti DNA Not Detected (Not Detected)
== END 2024-07-29 12:24 | disposition home or self-care (01) | DRG 377 ==
LOC: ED 00:50 → 2W 02:50 → INTOOBSV 12:17 → 2S 16:42